=== PATIENT | female | born 1945 | race Caucasian/White ===

== ENCOUNTER 2019-05-01 13:13 | Outpatient (CLI) | payer MEDICARE, SELFPAY ==
[2019-05-01 13:30] LABS: Basophils Absolute Auto 0.05 K/mm3 (0.00-0.10); Basophils Percent Auto 1.2 % (0.0-1.0); Eosinophils Absolute Auto 0.15 K/mm3 (0.02-0.50); Eosinophils Percent Auto 3.6 % (1.0-6.0); Hematocrit 35.6 % (35.0-42.0); Hemoglobin 11.7 g/dL (11.7-13.8); Immature Granulocyte Absolute 0.01 K/mm3 (0.00-0.00); Immature Granulocyte Percent A 0.2 % (0.0-0.0); Lymphocytes Absolute Auto 1.31 K/mm3 (1.10-4.50); Lymphocytes Percent Auto 31.1 % (18.0-42.0); Mean Corpuscular HGB Conc 32.9 g/dL (32.0-36.0); Mean Corpuscular Hemoglobin 32.9 pg (27.0-31.0); Monocytes Absolute Auto 0.33 K/mm3 (0.10-0.90); Monocytes Percent Auto 7.8 % (2.0-11.0); Neutrophils Absolute Auto 2.4 K/mm3 (1.7-7.2); Neutrophils Percent Auto 56.1 % (50.0-70.0); Platelet Count Result 194 K/mm3 (150-420); Red Blood Count 3.56 M/mm3 (4.20-5.40); Red Cell Distribution Width 13.3 % (11.6-14.4); White Blood Count 4.2 K/mm3 (4.8-10.8)
[2019-05-01 14:29] LABS: Alanine Aminotransferase 24 U/L (14-59); Albumin Level 3.8 g/dL (3.4-5.0); Alkaline Phosphatase 77 U/L (46-116); Anion Gap 9.4 mmol/L (7-16); Aspartate Amino Transferase 22 U/L (15-37); Bilirubin,Total 0.3 mg/dL (0.00-1.00); Blood Urea Nitrogen 15 mg/dL (7-18); Calcium 8.2 mg/dL (8.5-10.1); Carbon Dioxide 31 mmol/L (21-32); Chloride 105 mmol/L (98-108); Estimated Glomerular Filt Rate > 60; Glucose 124 mg/dL (70-99); Osmolality Calculated 293 mOsm/kg (285-295); Potassium 4.4 mmol/L (3.5-5.1); Sodium 141 mmol/L (136-145); Total Protein 6.2 g/dL (6.4-8.2)
[2019-05-01 14:30] LABS: CRP < 0.2 mg/dL (0.0-0.9)
[2019-05-01 14:40] LABS: Erythrocyte Sedimentation Rate 9 mm/hr (0-20)
== END 2019-05-01 13:14 | disposition home or self-care (01) ==
LOC: CHSLAB 13:17
PROVIDERS: PCP Family Medicine
DX: Z79.899 Other long term (current) drug therapy (principal); M06.9 Rheumatoid arthritis, unspecified
CPT/HCPCS: 36415; 80053; 85025; 85652; 86140

== ENCOUNTER 2020-01-08 10:02 | Outpatient (CLI) | payer MEDICARE, SELFPAY ==
[2020-01-08 10:29] LABS: Basophils Absolute Auto 0.05 K/mm3 (0.00-0.10); Basophils Percent Auto 1.1 % (0.0-1.0); Eosinophils Absolute Auto 0.15 K/mm3 (0.02-0.50); Eosinophils Percent Auto 3.4 % (1.0-6.0); Hematocrit 36.9 % (35.0-42.0); Hemoglobin 12.3 g/dL (11.7-13.8); Immature Granulocyte Absolute 0.01 K/mm3 (0.00-0.00); Immature Granulocyte Percent A 0.2 % (0.0-0.0); Lymphocytes Absolute Auto 1.23 K/mm3 (1.10-4.50); Lymphocytes Percent Auto 27.5 % (18.0-42.0); Mean Corpuscular HGB Conc 33.3 g/dL (32.0-36.0); Mean Corpuscular Hemoglobin 32.7 pg (27.0-31.0); Mean Corpuscular Volume 98.1 fL (78.0-102.0); Mean Platelet Volume 9.3 fl (9.2-11.8); Monocytes Absolute Auto 0.32 K/mm3 (0.10-0.90); Monocytes Percent Auto 7.2 % (2.0-11.0); Neutrophils Absolute Auto 2.7 K/mm3 (1.7-7.2); Neutrophils Percent Auto 60.6 % (50.0-70.0); Platelet Count Result 214 K/mm3 (150-420); Red Blood Count 3.76 M/mm3 (4.20-5.40); White Blood Count 4.5 K/mm3 (4.8-10.8)
[2020-01-08 11:28] LABS: Alanine Aminotransferase 21 U/L (14-59); Albumin Level 3.9 g/dL (3.4-5.0); Alkaline Phosphatase 70 U/L (46-116); Anion Gap 7 mmol/L (8-16); Aspartate Amino Transferase 17 U/L (15-37); Bilirubin,Total 0.5 mg/dL (0.00-1.00); Blood Urea Nitrogen 12 mg/dL (7-18); Calcium 8.6 mg/dL (8.5-10.1); Carbon Dioxide 28 mmol/L (21-32); Chloride 105 mmol/L (98-108); Estimated Glomerular Filt Rate > 60; Glucose 80 mg/dL (70-99); Osmolality Calculated 288 mOsm/kg (285-295); Potassium 4.4 mmol/L (3.5-5.1); Sodium 140 mmol/L (136-145); Total Protein 6.6 g/dL (6.4-8.2)
[2020-01-08 11:29] LABS: CRP < 0.2 mg/dL (0.0-0.9)
[2020-01-08 11:36] LABS: Erythrocyte Sedimentation Rate 18 mm/hr (0-20)
== END 2020-01-08 10:03 | disposition home or self-care (01) ==
PROVIDERS: PCP Family Medicine
DX: M06.9 Rheumatoid arthritis, unspecified (principal); Z79.899 Other long term (current) drug therapy
CPT/HCPCS: 36415; 80053; 85025; 85652; 86140

== ENCOUNTER 2020-03-06 13:07 | Outpatient (CLI) | payer MEDICARE, SELFPAY ==
[2020-03-06 13:18] LABS: Hematocrit 39.8 % (35.0-42.0); Hemoglobin 13.1 g/dL (11.7-13.8); Mean Corpuscular HGB Conc 32.9 g/dL (32.0-36.0); Mean Corpuscular Hemoglobin 32.1 pg (27.0-31.0); Mean Corpuscular Volume 97.5 fL (78.0-102.0); Platelet Count Result 186 K/mm3 (150-420); Red Blood Count 4.08 M/mm3 (4.20-5.40); Red Cell Distribution Width 11.9 % (11.6-14.4)
[2020-03-06 14:09] LABS: Ferritin 77 ng/mL (8-252)
== END 2020-03-06 13:08 | disposition home or self-care (01) ==
LOC: CHSLAB 13:09
PROVIDERS: PCP Family Medicine; Visit Provider Family Medicine
DX: G25.81 Restless legs syndrome (principal); R71.8 Other abnormality of red blood cells
CPT/HCPCS: 36415; 82728; 85027

== ENCOUNTER 2020-04-08 11:24 | Outpatient (CLI) | payer MEDICARE, SELFPAY ==
[2020-04-08 11:34] LABS: Basophils Absolute Auto 0.05 K/mm3 (0.00-0.10); Basophils Percent Auto 1.2 % (0.0-1.0); Eosinophils Absolute Auto 0.21 K/mm3 (0.02-0.50); Eosinophils Percent Auto 5.2 % (1.0-6.0); Hematocrit 34.8 % (35.0-42.0); Hemoglobin 11.5 g/dL (11.7-13.8); Immature Granulocyte Absolute 0.01 K/mm3 (0.00-0.00); Immature Granulocyte Percent A 0.2 % (0.0-0.0); Lymphocytes Absolute Auto 1.27 K/mm3 (1.10-4.50); Lymphocytes Percent Auto 31.6 % (18.0-42.0); Mean Corpuscular Hemoglobin 31.8 pg (27.0-31.0); Mean Corpuscular Volume 96.1 fL (78.0-102.0); Mean Platelet Volume 8.4 fl (9.2-11.8); Monocytes Absolute Auto 0.37 K/mm3 (0.10-0.90); Monocytes Percent Auto 9.2 % (2.0-11.0); Neutrophils Absolute Auto 2.1 K/mm3 (1.7-7.2); Neutrophils Percent Auto 52.6 % (50.0-70.0); Platelet Count Result 218 K/mm3 (150-420); Red Blood Count 3.62 M/mm3 (4.20-5.40); Red Cell Distribution Width 12.5 % (11.6-14.4)
[2020-04-08 12:34] LABS: Alanine Aminotransferase 31 U/L (14-59); Albumin Level 3.8 g/dL (3.4-5.0); Alkaline Phosphatase 83 U/L (46-116); Anion Gap 7 mmol/L (8-16); Aspartate Amino Transferase 21 U/L (15-37); Bilirubin,Total 0.6 mg/dL (0.00-1.00); Blood Urea Nitrogen 10 mg/dL (7-18); CRP < 0.2 mg/dL (0.0-0.9); Calcium 8.4 mg/dL (8.5-10.1); Carbon Dioxide 28 mmol/L (21-32); Chloride 104 mmol/L (98-108); Estimated Glomerular Filt Rate > 60; Glucose 82 mg/dL (70-99); Osmolality Calculated 286 mOsm/kg (285-295); Potassium 4.7 mmol/L (3.5-5.1); Sodium 139 mmol/L (136-145)
== END 2020-04-08 11:25 | disposition home or self-care (01) ==
LOC: CHSLAB 11:27
PROVIDERS: PCP Family Medicine
DX: M06.9 Rheumatoid arthritis, unspecified (principal); Z79.899 Other long term (current) drug therapy
CPT/HCPCS: 36415; 80053; 85025; 86140

== ENCOUNTER → 2020-06-02 01:00 | Outpatient (CLI) | payer MEDICARE, OTHER, SELFPAY ==
[2020-06-02 20:47] LABS: SARS-CoV-2 RNA PCR Negative
== END ==
PROVIDERS: PCP Family Medicine; Visit Provider Orthopaedic Surgery
DX: Z01.812 Encounter for preprocedural laboratory examination (principal); Z20.822 Contact with and (suspected) exposure to COVID-19
CPT/HCPCS: C9803; U0003; U0005

== ENCOUNTER 2020-06-05 01:37 | Day surgery (SDC) | payer MEDICARE, OTHER, SELFPAY ==
[2020-05-28 13:51] VITALS: BMI 23.6
--- NOTE | 2020-06-04 12:30 | WPDANESEPPF ---
Anes - Initial Pre Proc Eval Procedure: Operation Date: 06/05/20 10:30 Proposed Procedures p Open Distal Clavicle Excision, Right Shoulder - Gabino Romero MD Date/Time: 06/04/20 12:30 Surgeon: Gabino Romero MD Pre Op Diagnosis: Primary OA, Right Shoulder Patient Data Age: 74 Gender: F Height: 1.65 m Weight: 64.54 kg Allergies Allergy/AdvReac Type Severity Reaction Status Date / Time No Known Allergies Allergy Verified 05/28/20 13:48 Home Medications Medication Instructions Recorded Confirmed Type folic acid 1 mg tablet 1 mg PO DAILY 03/18/19 05/28/20 History hydroxychloroquine 200 mg tablet 200 mg PO DAILY 03/18/19 05/28/20 History multivitamin 1 tablet PO DAILY 03/18/19 05/28/20 History tramadol 50 mg tablet 50 mg PO Q6H PRN 03/18/19 05/28/20 History trazodone 50 mg tablet 100 mg PO .Bedtime tablet 03/18/19 05/28/20 History methotrexate sodium 2.5 mg tablet 20 mg PO WEEKLY tablet 03/06/20 05/28/20 History ropinirole 0.5 mg tablet See Rx Instructions .ROUTE 05/28/20 05/28/20 Rx .COMPLEX #90 tablet Patient hx anesthesia problems: none Family hx anesthesia problems: none PMFSH Past Medical History Medical History (Updated 05/18/20 @ 14:22 by Gabino Romero MD) Palindromic rheumatism Peripheral neuropathy Restless leg syndrome Rheumatoid arthritis Skin lesion Surgical History Surgical History (Updated 05/18/20 @ 13:12 by Sirena Brandt MA) History of appendectomy History of carpal tunnel release of both wrists (~1999) History of hysterectomy History of repair of left rotator cuff (~1997) History of repair of right rotator cuff (~2015) History of surgery (~2018) Biceps tendon repair Family History Family History Father Diabetes mellitus Kidney disease Mother Wegeners granulomatosis Social History Social History (Updated 05/18/20 @ 13:13 by Sirena Brandt MA) Smoking status: Former smoker Tobacco type: cigarettes Additional smoking assessment comments: STATES 1PK EVERY 3 DAYS FOR 20YRS, QUIT 1994 Alcohol intake: never Substance use: never Substance use type: does not use Living arrangements: with family Additional living arrangements comments: LIVES WITH [facility] [phone] Gender identity (if verbalized by the patient): Female Spiritual care concerns: No Anes - Eval Final PreProcedure Day of Procedure 06/04/20 12:30 Patient weight: normal Heart: regular rate and rhythm Lungs: clear to auscultation and normal air movement Airway: Mallampati scale class II Neurological: alert and oriented Last oral intake: >/= 8 hours ASA classification: III Emergent: no Anesthetic plan: proceed Anesthesia type and monitoring: general ETT and standard monitoring Informed Consent: The patient's anesthetic plan and its attendant risks and benefits were discussed with the patient/family/POA. Questions were solicited and answers provided to the satisfaction of the patient/family/POA.
[2020-06-05] VITALS (10 sets, daily range): BP systolic 96–124; BP diastolic 42–53; PULSE 63–89; RESP 12–18; TEMP 36.4–36.6; O2SAT 94–100
--- NOTE | 2020-06-05 07:27 | WPDHPUPDATE1 ---
History and Physical Update Update Date/Time: 06/05/20 07:27 History and Physical has been reviewed, including an updated exam of the patient. There are NO changes in the patient's condition. Risks, benefits, and alternatives have been discussed and questions answered. Patient agrees to proceed with procedure.
[2020-06-05] MEDS: KETOROLAC 15 MG/ML VIAL (*BKC) IV PUSH (08:48)
[2020-06-05] MEDS: ACETAMINOPHEN 500 MG TABLET 1000 MG PO (08:48)
[2020-06-05] MEDS: LACTATED RINGERS 1,000 ML 30 ML IV CONT ×3 (08:49→14:00)
[2020-06-05] MEDS: ceFAZolin 2 GM/D5W 50 ML 2 GM/50 ML BAG IVPB (10:52)
[2020-06-05] MEDS: BUPIVACAINE/EPINEPHRINE 0.5% 10 ML VIAL 30 ML INFILTRATE (11:38)
--- NOTE | 2020-06-05 12:20 | PM.PROC ---
Procedure Note - Detailed Date of procedure: 06/05/20 Pre-op diagnosis: Primary OA, Right Shoulder A/C joint arthrosis, right shoulder. Post-op diagnosis: same Procedure performed: 1. Distal clavicle excision, open. Description of procedure: Several additional mm of bone was resected to relieve impingement at the distal clavicle. Anesthesia: GLMA Surgeon: Gabino Romero MD Estimated blood loss (mL): 10 Pathology: none sent Complications: No immediate complications Condition: stable Disposition: PACU Findings: Operative indication: The patient complained of persistent pain at the top of the shoulder. History of arthroscopic rotator cuff repair with acromioplasty and DCE; and second look arthroscopy with subpectoral biceps tenodesis; all done elsewhere. Operative findings: The shoulder demonstrated no abnormal findings on examination under anesthesia. Slight irregularity at the distal clavicle was observed. There was evidence of impingement of the acromion on the clavicle with cross arm adduction. Operative Details: A general anesthetic was administered. Local anesthetic was used; 0.5% Marcaine with epinephrine, 10mL. The shoulder was prepped and draped in usual sterile fashion. A longitudinal incision was created over the distal end of the clavicle. Dissection was brought down to the superior fascia and capsule of the joint. This was incised longitudinally along the length of the bone. Approximately 1 centimeter of distal clavicle was exposed. Hohmann retractors were placed for protection resection. The microsagittal saw was used to remove an additional 4 mm which brought the total resected length to approximately 1-1.5 cm. Meticulous hemostasis was maintained. The overlying periosteum and superior ligaments were closed with interrupted #1 Vicryl suture. The subcutaneous tissues were closed with 2-0 Vicryl, 3-0 Monocryl suture and 4-0 Monocryl suture. Steri-Strips were placed on the skin. Sterile dressing was applied with a sling. The patient was extubated and brought to the recovery room in stable condition. There were no complications.
[2020-06-05] MEDS: ONDANSETRON INJ 4 MG/2 ML VIAL IV PUSH (13:39)
== END 2020-06-05 15:15 | disposition home or self-care (01) ==
PROVIDERS: PCP Family Medicine; Visit Provider Orthopaedic Surgery
PROC: (CPT 23420; principal; 2020-06-05 10:30)
DX: M19.011 Primary osteoarthritis, right shoulder (principal); M75.41 Impingement syndrome of right shoulder; Z98.890 Other specified postprocedural states; M06.9 Rheumatoid arthritis, unspecified; G25.81 Restless legs syndrome; G62.9 Polyneuropathy, unspecified; Z87.891 Personal history of nicotine dependence
CPT/HCPCS: 23120; A4565; A9270; J0330; J0690; J1100; J1885; J2405; J2704; J2710; J3010; J7120

== ENCOUNTER 2020-06-16 13:31 | Outpatient (CLI) | payer MEDICARE, OTHER, SELFPAY ==
--- NOTE | ~2020-06-16 | XR_ITS ---
XR ribs LT 2V w CXR 2V DATE: 06/16/2020 13:51 INDICATION: Left-sided chest pain following twisting injury. Shortness of breath. TECHNIQUE: PA and lateral chest. 3 views of the left ribs. COMPARISON: None FINDINGS: Normal heart size. No hilar or mediastinal enlargement. No pulmonary infiltrate or consolidation, pleural effusion or pulmonary vascular congestion or pneumo thorax. Diffuse osteopenia. No left rib fracture or bone destruction is evident. IMPRESSION: Diffuse osteopenia No left rib fracture is noted No active cardiopulmonary disease Reviewed, dictated and finalized at location A.
== END 2020-06-16 13:32 | disposition home or self-care (01) ==
LOC: CHSIMG 13:34
PROVIDERS: PCP Family Medicine; Visit Provider Nurse Practitioner Family
DX: R10.9 Unspecified abdominal pain (principal)
CPT/HCPCS: 71046; 71100

== ENCOUNTER 2020-06-18 10:21 | Outpatient (CLI) | payer MEDICARE, OTHER, SELFPAY ==
--- NOTE | ~2020-06-18 | CT_ITS ---
EXAMINATION: CT chest abdomen wo con EXAM DATE: 06/18/2020 11:20 INDICATION: R10.9 - Unspecified abdominal pain upper left flank abd/ left lower lat chest pain x2wks. Symptoms 2 weeks. TECHNIQUE: Spiral CT of the chest and abdomen was performed without contrast. Axial, coronal and sa gittal images chest and abdomen were reviewed. Coronal maximum intensity pixel images of chest revie wed. The dose-length product (DLP) for this examination was 302.17 mGy-cm. The exposure was tailore d according to patient size (auto mA exposure control), and iterative reconstruction (ASIR) was used as additional dose reduction technique. There is no prior study for comparison. FINDINGS: CHEST: Small amount of biapical scarring. Some calcified left lung parenchymal granulomata. Mild emp hysema and hyperinflation. Mild mosaic attenuation probably air trapping. There are no pleural or pe ricardial effusions. Tracheobronchial tree is patent. There is no mediastinal, hilar or axillary lymphadenopathy. There is no pneumothorax. Heart normal in size. There is mild coronary arteria l calcification, arterial sclerosis. ABDOMEN: Splenic and liver granulomata. Pancreas and adrenal glands are unremarkable. Gallbladder is unremarkable. No biliary obstruction. Several punctate right calyceal stones. No hydronephrosis. There is no retroperitoneal lymphadenopathy. There is mild scattered arteriosclerotic disease. There is small sliding gastroesophageal hiatal hernia. There is moderate to large amount of colonic stool. No free intraperitoneal gas. There are no osteoblastic or osteolytic lesions identified. IMPRESSION: 1. Moderate to large amount of colonic stool. 2. Punctate right nephrolithiasis. 3. Mild emphysema, hyperinflation and air trapping. 4. Infectious residua. Reviewed, dictated and finalized at location A.
== END 2020-06-18 10:22 | disposition home or self-care (01) ==
LOC: CHSIMG 10:24
PROVIDERS: PCP Family Medicine; Visit Provider Nurse Practitioner Family
DX: R10.9 Unspecified abdominal pain (principal)
CPT/HCPCS: 71250; 74150

== ENCOUNTER 2021-08-19 13:30 | Outpatient (CLI) | payer MEDICARE, OTHER, SELFPAY ==
[2021-08-19 13:42] LABS: Basophils Absolute Auto 0.07 K/mm3 (0.00-0.10); Basophils Percent Auto 1.4 % (0.0-1.0); Eosinophils Absolute Auto 0.14 K/mm3 (0.02-0.50); Eosinophils Percent Auto 2.8 % (1.0-6.0); Hematocrit 37.6 % (35.0-42.0); Hemoglobin 12.4 g/dL (11.7-13.8); Immature Granulocyte Absolute 0.01 K/mm3 (0.00-0.00); Immature Granulocyte Percent A 0.2 % (0.0-0.0); Lymphocytes Absolute Auto 1.72 K/mm3 (1.10-4.50); Lymphocytes Percent Auto 33.9 % (18.0-42.0); Mean Corpuscular Hemoglobin 31.9 pg (27.0-31.0); Mean Corpuscular Volume 96.7 fL (78.0-102.0); Mean Platelet Volume 9.4 fl (9.2-11.8); Monocytes Absolute Auto 0.39 K/mm3 (0.10-0.90); Monocytes Percent Auto 7.7 % (2.0-11.0); Neutrophils Absolute Auto 2.7 K/mm3 (1.7-7.2); Platelet Count Result 221 K/mm3 (150-420); Red Blood Count 3.89 M/mm3 (4.20-5.40); Red Cell Distribution Width 12.9 % (11.6-14.4); White Blood Count 5.1 K/mm3 (4.8-10.8)
[2021-08-19 14:16] LABS: Alanine Aminotransferase 21 U/L (14-59); Albumin Level 3.9 g/dL (3.4-5.0); Alkaline Phosphatase 84 U/L (46-116); Anion Gap 9 mmol/L (8-16); Aspartate Amino Transferase 18 U/L (15-37); Bilirubin,Total 0.6 mg/dL (0.00-1.00); Blood Urea Nitrogen 13 mg/dL (7-18); Calcium 8.7 mg/dL (8.5-10.1); Carbon Dioxide 28 mmol/L (21-32); Chloride 105 mmol/L (98-108); Estimated Glomerular Filt Rate > 60; Glucose 93 mg/dL (70-99); Osmolality Calculated 294 mOsm/kg (285-295); Potassium 3.9 mmol/L (3.5-5.1); Sodium 142 mmol/L (136-145); Total Protein 7.1 g/dL (6.4-8.2)
[2021-08-19 15:15] LABS: CRP < 0.2 mg/dL (0.0-0.9)
[2021-08-19 16:08] LABS: Erythrocyte Sedimentation Rate 11 mm/hr (0-20)
== END 2021-08-19 13:31 | disposition home or self-care (01) ==
LOC: CHSLAB 13:34
DX: M06.9 Rheumatoid arthritis, unspecified (principal); Z79.899 Other long term (current) drug therapy
CPT/HCPCS: 36415; 80053; 85025; 85652; 86140

== ENCOUNTER 2022-01-17 00:57 | Emergency (ER) | payer MEDICARE, OTHER, SELFPAY ==
[2022-01-17] VITALS (16 sets, daily range): BP systolic 90–115; BP diastolic 39–65; PULSE 55–65; RESP 11–20; TEMP 36.6; O2SAT 94–100
--- NOTE | ~2022-01-17 | XR_ITS ---
EXAMINATION: XR foot LT min 3V DATE: 01/17/2022 01:37 INDICATION: Left foot injury. TECHNIQUE: 3 views of left foot were obtained. COMPARISON: None. FINDINGS: Bone alignment is normal. No fracture. There is mild osteoarthritis of first metatarsophala ngeal joint and some of the interphalangeal joints and midfoot joints. There is soft tissue swelling of the foot. IMPRESSION: 1. Mild polyarticular osteoarthritis. Reviewed, dictated and finalized at location A. [employer]TER
--- NOTE | 2022-01-17 01:00 | ED.SYNCOPE ---
HPI - Syncope General Chief Complaint: Extremity Injury, Lower Stated Complaint: foot pain Time Seen by Provider: 01/17/22 01:00 Source: patient, EMS and RN notes reviewed Mode of arrival: EMS Limitations: no limitations History of Present Illness HPI narrative: Patient at home and had taken her trazodone for sleep. Her was having some difficulty with urination and had called out to her to help him. She stood up out of bed turn to get her clothes the next thing she knew she was on the floor. She did not hit her head. When she tried to get up off the floor she noticed that her left foot had been injured. She is not sure how that happened. It is swollen and bruised. complaint: loss of consciousness Onset (ago): minute(s) (40) -: second(s) Prodromal symptoms: none Witnessed: No Context: getting out of bed Injuries sustained associated with event: LLE (foot) Current symptoms: back to baseline Treatments prior to arrival: none Related Data Home Medications Medication Instructions Recorded Confirmed folic acid 1 mg tablet 1 mg PO DAILY 03/18/19 01/17/22 hydroxychloroquine 200 mg tablet 200 mg PO DAILY 03/18/19 01/17/22 multivitamin 1 tablet PO DAILY 03/18/19 01/17/22 tramadol 50 mg tablet 50 mg PO Q6H PRN Pain 03/18/19 01/17/22 methotrexate sodium 2.5 mg tablet 20 mg PO WEEKLY 03/06/20 01/17/22 gabapentin 300 mg capsule 300 mg PO HS 01/17/22 01/17/22 pregabalin 75 mg capsule 150 mg PO BID 01/17/22 01/17/22 Allergies Allergy/AdvReac Type Severity Reaction Status Date / Time No Known Allergies Allergy Verified 07/21/20 06:58 Review of Systems Review of Systems: All systems reviewed & are unremarkable except as noted in HPI and below PMFSH Past Medical History Medical History Palindromic rheumatism Peripheral neuropathy Restless leg syndrome Rheumatoid arthritis Skin lesion Surgical History Surgical History History of appendectomy History of carpal tunnel release of both wrists (~1999) History of hysterectomy History of repair of left rotator cuff (~1997) History of repair of right rotator cuff (~2015) History of surgery (~2019) Biceps tendon repair Family History Family History Father Diabetes mellitus Kidney disease Mother Wegeners granulomatosis Social History Social History Smoking status: Former smoker Tobacco type: cigarettes Additional smoking assessment comments: STATES 1PK EVERY 3 DAYS FOR 20YRS, QUIT 1994 Alcohol intake: never Substance use: never Substance use type: does not use Additional living arrangements comments: LIVES WITH [facility] [phone] Gender identity (if verbalized by the patient): Female Spiritual care concerns: No Exam Const: General: healthy appearing, no acute distress and alert Nutritional Appearance: well nourished Orientation/consciousness: patient oriented x3 Limitations: no limitations HENMT: Head: normal to inspection Ears: external ears normal Face/Nose/Sinus: Normal external nose present Face and sinus: normal facial exam Mouth: Yes moist mucous membranes Eyes: Conjunctivae: conjunctivae normal Pupils: Equal, round and reactive pupils present EOM: EOMs intact bilaterally Neck: Neck: normal visual inspection Resp: Effort & Inspection: normal respiratory effort Auscultation: clear to auscultation bilaterally Cardio: Rate: regular rate Rhythm: regular rhythm GI: GI Palp: Yes Soft to palpation and No Tenderness to palpation present (GI) Auscultation: normal bowel sounds Back/Spine/Pelvis: Cervical Spine: cervical ROM normal Thoracic/Lumbar Spine: thoraco-lumbar ROM normal Skin: General skin exam: normal color Rashes: no rashes Neuro: General: patient oriented x3, moves all extre
--- NOTE | 2022-01-17 01:02 | ECG_ITS ---
Measurements Intervals [place] Rate: 55 P: 73 KS: 250 QRS: 40 QRSD: 95 T: 45 QT: 490 QTc: 469 Interpretive Statements SINUS BRADYCARDIA WITH FIRST DEGREE AV BLOCK OTHERWISE NORMAL ECG NO PREVIOUS ECG AVAILABLE FOR COMPARISON Electronically Signed On 01-17-2022 6:28:54 [employer] LINKER by Venkatesh Pathak M.D.
[2022-01-17] MEDS: KETOROLAC 30 MG/ML VIAL (*BKC) IV PUSH (01:14)
[2022-01-17 01:23] LABS: Basophils Absolute Auto 0.05 K/mm3 (0.00-0.10); Eosinophils Absolute Auto 0.27 K/mm3 (0.02-0.50); Eosinophils Percent Auto 5.5 % (1.0-6.0); Hematocrit 35.9 % (35.0-42.0); Immature Granulocyte Absolute 0.02 K/mm3 (0.00-0.00); Immature Granulocyte Percent A 0.4 % (0.0-0.0); Lymphocytes Absolute Auto 1.63 K/mm3 (1.10-4.50); Lymphocytes Percent Auto 33.3 % (18.0-42.0); Mean Corpuscular HGB Conc 33.4 g/dL (32.0-36.0); Mean Corpuscular Hemoglobin 32.3 pg (27.0-31.0); Mean Corpuscular Volume 96.8 fL (78.0-102.0); Mean Platelet Volume 9.2 fl (9.2-11.8); Monocytes Absolute Auto 0.31 K/mm3 (0.10-0.90); Monocytes Percent Auto 6.3 % (2.0-11.0); Neutrophils Absolute Auto 2.6 K/mm3 (1.7-7.2); Neutrophils Percent Auto 53.5 % (50.0-70.0); Platelet Count Result 157 K/mm3 (150-420); Red Blood Count 3.71 M/mm3 (4.20-5.40); Red Cell Distribution Width 13.2 % (11.6-14.4); White Blood Count 4.9 K/mm3 (4.8-10.8)
[2022-01-17 01:41] LABS: Alanine Aminotransferase 21 U/L (14-59); Albumin Level 3.4 g/dL (3.4-5.0); Alkaline Phosphatase 77 U/L (46-116); Anion Gap 6 mmol/L (8-16); Aspartate Amino Transferase 18 U/L (15-37); Bilirubin,Total 0.4 mg/dL (0.00-1.00); Blood Urea Nitrogen 17 mg/dL (7-18); Calcium 8.1 mg/dL (8.5-10.1); Carbon Dioxide 31 mmol/L (21-32); Chloride 107 mmol/L (98-108); Estimated CRCL calculation 49 ml/min; Estimated Glomerular Filt Rate > 60; Glucose 144 mg/dL (70-99); Magnesium 1.9 mg/dL (1.8-2.4); Osmolality Calculated 302 mOsm/kg (285-295); Potassium 3.7 mmol/L (3.5-5.1); Sodium 144 mmol/L (136-145); Total Protein 6.5 g/dL (6.4-8.2); Troponin I 24.6 ng/L (0.00-60.4)
--- NOTE | 2022-01-17 02:20 | PC.NURSE ---
Pt assisted to BSC c stand and pivot to urinate, back to bed c SBA and Lt foot elevated and ice reapplied. Pt reports less pain c ice and pain med given.
[2022-01-17 02:34] LABS: Appearance Urine Clear (Clear); Bilirubin Urine Negative (Negative); Blood Urine 1+ (Negative); Glucose Urine UA Negative (Negative); Ketones Urine Negative (Negative); Leukocyte Esterase Ur Trace LEU/UL (Negative); Nitrate Urine Negative (Negative); Protein Urine Negative (Negative); Specific Grav Ur 1.015 (1.010-1.020); Urobilinogen Urine 0.2 mg/dL (0.2-1.0)
[2022-01-17 02:40] LABS: Add Urine Microscopic? YES; Amorphous Sediment Urine Moderate; Color Urine Light Yellow (Yellow); RBC Urine 0-2 /hpf (0-2); WBC Urine 0-3 /hpf (0-3)
[2022-01-17 02:41] LABS: Mucus Urine Moderate /lpf
--- NOTE | 2022-01-17 03:05 | PC.NURSE ---
POC discussed c pt and family, will send xray to radiologist for reading. Awaiting results, pt in position of comfort c daughter at bedside.
== END 2022-01-17 04:15 | disposition home or self-care (01) ==
PROVIDERS: Emergency Provider Emergency Medicine; PCP Family Medicine
DX: R55 Syncope and collapse (principal); S93.602A Unspecified sprain of left foot, initial encounter; W19.XXXA Unspecified fall, initial encounter
CPT/HCPCS: 36415; 73630; 80053; 81001; 83735; 84484; 85025; 93005; 96374; 99284; J1885

== ENCOUNTER 2022-01-19 17:42 | Outpatient (NON) | payer MEDICARE, SELFPAY | END 2022-01-19 17:43 | disposition home or self-care (01) | LOC: CHSLAB 17:44 | PROVIDERS: Visit Provider Family Medicine | DX: C44.329 Squamous cell carcinoma of skin of other parts of face (principal) | CPT/HCPCS: 88305; 88342 ==

== ENCOUNTER 2022-01-25 09:58 | Outpatient (CLI) | payer MEDICARE, OTHER, SELFPAY ==
--- NOTE | 2022-02-04 16:49 | WPDHOLTEREM ---
Holter/Event Monitor Holter/Event Monitor Date of procedure: 01/25/22 Holter/Event Procedure: 48 Hr Holter Monitor Indications: Orthostatic hypotension Conclusion: 1. 48 hour holter monitor on 01/25/22. 2. Predominant rhythm is sinus rhythm. HR range 47-114 bpm; average 65 bpm. 3. There are 553 premature supraventricular complexes and 40 supraventricular couplets. There are 10 episodes of atrial tachycardia, fastest at 145 bpm and longest lasting 8 beats. 4. No premature ventricular complexes. No ventricular tachycardia. 5. No sinoatrial or atrioventricular blocks. No significant pauses greater than 2 seconds. 6. No symptoms available for correlation.
== END 2022-01-25 09:59 | disposition home or self-care (01) ==
LOC: CHSLAB 10:01
PROVIDERS: PCP Family Medicine; Visit Provider Family Medicine
DX: I95.1 Orthostatic hypotension (principal)
CPT/HCPCS: 93225; 93226

== ENCOUNTER 2022-02-11 12:14 | Outpatient (CLI) | payer MEDICARE, OTHER, SELFPAY ==
--- NOTE | 2022-02-11 12:19 | ECHO_ITS ---
Patient Info Name: Nicolette Monk Age: 76 years : 1945 Gender: Female Ht: 65 in Wt: 145 lbs BSA: 1.75 m2 HR: 58 bpm BP: 105 / 48 mmHg Heart Rhythm: Sinus Rhythm Technical Quality: Fair Exam Date: 02/11/2022 1:31 PM Exam Location: [facility] Patient Status: Outpatient Admit Date: 02/11/2022 Staff Ordering Physician: Silviano Stone DO Design Agent: Daniella Caro RDCS Attending Provider: Silviano Stone DO Referring Physician: Chase TAFOYA; Exam Type: CA echo doppler color flow Study Info Indications - Orthostatic hypotension Complete two-dimensional, color flow and Doppler transthoracic echocardiogram is performed. Summary 1. Complete two-dimensional, color flow and Doppler transthoracic echocardiogram is performed. 2. Left ventricular chamber dimension is normal. 3. Left ventricular systolic function is normal, estimated at 60-65%. 4. The left ventricular diastolic function is normal. 5. E/e' 8 is minimally elevated. 6. Left atrial chamber dimension is moderately enlarged. 7. Right atrial chamber dimension is mildly enlarged. 8. There is trace aortic valve regurgitation. 9. There is mild mitral valve regurgitation. 10. There is trace tricuspid valve regurgitation. 11. No pulmonary hypertension, estimated pulmonary arterial systolic pressure is 23 mmHg. 12. There is trace pulmonic regurgitation. Left Ventricle E/e' 8 is minimally elevated. Left ventricular chamber dimension is normal. Left ventricular systolic function is normal, estimated at 60-65%. The left ventricular diastolic function is normal. Right Ventricle Right ventricular systolic function is normal and with normal TAPSE 2.1 cm. Right ventricular chamber dimension is normal. Left Atria Left atrial chamber dimension is moderately enlarged. Right Atria Right atrial chamber dimension is mildly enlarged. Aortic Valve The aortic valve is trileaflet. There is no aortic valve stenosis. There is trace aortic valve regurgitation. Pulmonic Valve There is trace pulmonic regurgitation. Mitral Valve There is no mitral valve stenosis. There is mild mitral valve regurgitation. Tricuspid Valve There is trace tricuspid valve regurgitation. No pulmonary hypertension, estimated pulmonary arterial systolic pressure is 23 mmHg. Pericardium/Pleural There is no pericardial effusion. Inferior Vena Cava Normal inferior vena cava with >50% collapse upon inspiration consistent with normal right atrial pressure, 5 mmHg. Aorta The aortic root size at the sinus of Valsalva is normal. Left Ventricular Outflow Tract Name Value Normal LVOT 2D LVOT Diameter 2.0 cm LVOT Doppler LVOT Peak Velocity 131 cm/s LVOT Peak Gradient 7 mmHg LVOT Mean Gradient 3 mmHg LVOT VTI 28 cm LVOT VTI/AV VTI Ratio 0.8 LVOT Stroke Volume 85 ml Pulmonic Valve Name
== END 2022-02-11 12:15 | disposition home or self-care (01) ==
LOC: CHSIMG 12:16
PROVIDERS: PCP Family Medicine; Visit Provider Family Medicine
DX: I95.1 Orthostatic hypotension (principal); R93.1 Abnormal findings on diagnostic imaging of heart and coronary circulation; I34.0 Nonrheumatic mitral (valve) insufficiency
CPT/HCPCS: 93306

== ENCOUNTER 2022-02-22 09:43 | Outpatient (CLI) | payer MEDICARE, OTHER, SELFPAY ==
[2022-02-22 10:26] LABS: Basophils Absolute Auto 0.03 K/mm3 (0.00-0.10); Basophils Percent Auto 0.7 % (0.0-1.0); Eosinophils Absolute Auto 0.19 K/mm3 (0.02-0.50); Eosinophils Percent Auto 4.3 % (1.0-6.0); Hematocrit 38.7 % (35.0-42.0); Hemoglobin 12.6 g/dL (11.7-13.8); Immature Granulocyte Absolute 0.02 K/mm3 (0.00-0.00); Immature Granulocyte Percent A 0.4 % (0.0-0.0); Lymphocytes Absolute Auto 1.13 K/mm3 (1.10-4.50); Lymphocytes Percent Auto 25.3 % (18.0-42.0); Mean Corpuscular HGB Conc 32.6 g/dL (32.0-36.0); Mean Corpuscular Hemoglobin 31.8 pg (27.0-31.0); Mean Corpuscular Volume 97.7 fL (78.0-102.0); Mean Platelet Volume 9.2 fl (9.2-11.8); Monocytes Absolute Auto 0.38 K/mm3 (0.10-0.90); Monocytes Percent Auto 8.5 % (2.0-11.0); Neutrophils Absolute Auto 2.7 K/mm3 (1.7-7.2); Neutrophils Percent Auto 60.8 % (50.0-70.0); Platelet Count Result 190 K/mm3 (150-420); Red Blood Count 3.96 M/mm3 (4.20-5.40); Red Cell Distribution Width 13.4 % (11.6-14.4); White Blood Count 4.5 K/mm3 (4.8-10.8)
[2022-02-22 11:01] LABS: Alanine Aminotransferase 20 U/L (14-59); Aspartate Amino Transferase 17 U/L (15-37); Estimated Glomerular Filt Rate > 60
[2022-02-22 11:05] LABS: CRP < 0.5 mg/dL (0.0-0.9)
[2022-02-22 11:36] LABS: Erythrocyte Sedimentation Rate 11 mm/hr (0-20)
== END 2022-02-22 09:44 | disposition home or self-care (01) ==
LOC: CHSLAB 09:46
PROVIDERS: PCP Family Medicine
DX: M06.9 Rheumatoid arthritis, unspecified (principal)
CPT/HCPCS: 36415; 82565; 84450; 84460; 85025; 85652; 86140

== ENCOUNTER 2022-03-29 09:02 | Outpatient (CLI) | payer MEDICARE, SELFPAY ==
[2022-03-29 10:02] LABS: Cholesterol 121 mg/dL (0-200); HDL Direct 60 mg/dL (40-60); LDL Cholesterol Calculated 54 mg/dL (<130); Magnesium 1.7 mg/dL (1.8-2.4); Triglycerides 36 mg/dL (0-150)
[2022-03-29 10:06] LABS: Thyroid Stimulating Hormone Reflex 1.12 u/IU/mL (0.36-3.74)
== END 2022-03-29 09:03 | disposition home or self-care (01) ==
LOC: CHSLAB 09:04
PROVIDERS: PCP Family Medicine; Visit Provider Internal Medicine Cardiovascular Disease
DX: I10 Essential (primary) hypertension (principal); I47.1 Supraventricular tachycardia
CPT/HCPCS: 36415; 80061; 83735; 84443

== ENCOUNTER → 2022-04-22 19:49 | Outpatient (CLI) | payer MEDICARE, OTHER, SELFPAY ==
--- NOTE | 2022-05-05 15:41 | WPDSLEEPSTUD ---
Sleep Study Date of Study: 04/22/22 Ordering Provider: Micheal William DO Interpreting Physician: Barbara See MD Sleep Study Type: Polysomnogram Height: 1.65 m Weight: 66.224 kg Body Mass Index: 24.3 Neck Circumference (inches): 13 [place]: 4 Reason for Sleep Study Hypersomnolence Sleep History Nicolette Monk is a 76-year-old woman with poor quality sleep. She sees Dr William for cardiovascular issues; has a history of paroxysmal atrial tachycardia, former smoker. She has a history of passing out twice, once on 01/16/22 when she got up in middle of night and walking in her room with her needing to go to ER, and first one was 10 years ago after having abdominal pain. She admits to snoring, waking up and daytime sleepiness. Dr. William's note indicates alex the patient is interested in an oral appliance. She rarely awakens from sleep feeling short of breath. She does not awaken at night with heartburn, belching or coughing. She occasionally snores and occasionally it is loud enough that other people complain about it. She does not have trouble sleeping with a cold. she rarely wakes up gasping for breath at night. She does not have excessive sweating at night or notice her heart pounding or beating irregularly at night. She does not fall asleep during the day, does not fall asleep involuntarily or while driving. There was no loss of muscle tone with strong emotion. There is no daytime dysfunction due to excessive sleepiness. There is no feeling of paralysis on waking or falling asleep and no vivid dreamlike scenes on waking or falling asleep. She is not afraid to go to sleep. She does not have nightmares. She frequently remembers her dreams. She constantly has racing thoughts. She rarely feels sad or depressed. She constantly has anxiety. She frequently has muscular tension. She occasionally notices parts of her body jerking. She occasionally kicks at night. She frequently has crawling and aching feelings in her legs and leg pain during the night. She does not have morning jaw pain. She frequently grinds her teeth during sleep. She is not bothered by pain during the day. She is not awakened by pain at night. She rarely wakes up feeling stiff in the morning. She does not wake up with sore achy muscles or pain in the neck and spine. Normal bedtime is 10:30 p.m. with about 5 minutes to fall asleep. She typically wakes 2-3 times at night to go to the bathroom. She is able to return to sleep and several minutes. Normal wake time is between 6 and 7:00 a.m.. On weekends she may stay awake until 11:00 p.m., wakes between 7 and 8:00 a.m.. She does not take naps in the afternoon or evening. Habits: Former smoker. No caffeine, alcohol or recreational drugs. [facility] Past Medical History Medical History (Updated 05/05/22 @ 18:41 by Barbara See MD) Palindromic rheumatism Peripheral neuropathy Restless leg syndrome Rheumatoid arthritis Skin lesion Surgical History Surgical History History of appendectomy History of carpal tunnel release of both wrists (~1999) History of hysterectomy History of repair of left rotator cuff (~1997) History of repair of right rotator cuff (~2015) History of surgery (~2018) Biceps tendon repair Family History Family History Father Diabetes mellitus Kidney disease Mother Wegeners granulomatosis Social History Social History Smoking status: Former smoker Tobacco type: cigarettes Additional smoking assessment comments: STATES 1PK EVERY 3 DAYS FOR 20YRS, QUIT 1994 Alcohol intake: never Substance use: never Substance use type: does not use Lack of Transportation: No Lack of Food: Never True Current Housing: I Have Housing Concerned About Future Housing: No Difficu
[2022-05-05 17:58] VITALS: BMI 24.3
== END ==
PROVIDERS: PCP Family Medicine; Visit Provider Internal Medicine Cardiovascular Disease
DX: G47.33 Obstructive sleep apnea (adult) (pediatric) (principal); G25.81 Restless legs syndrome; G47.10 Hypersomnia, unspecified; I47.1 Supraventricular tachycardia
CPT/HCPCS: 95810

== ENCOUNTER 2022-07-11 08:21 | Outpatient (CLI) | payer MEDICARE, OTHER, SELFPAY ==
--- NOTE | ~2022-07-11 | XR_ITS ---
XR foot LT min 3V DATE: 07/11/2022 08:41 INDICATION: Left foot pain TECHNIQUE: Standing 4 view examination COMPARISON: 01/17/2022 left foot FINDINGS: There is osteopenia. Slight plantar calcaneal enthesopathy. Mild osteoarthritis at the first metatarsophalangeal joint primarily. There is a concave depression with sclerotic margin at the medial base of the proximal phalanx of thi rd digit and small cortical defect in the apposing lateral aspect of the base of the proximal phalanx of the second digit. MR imaging may be helpful for further assessment. IMPRESSION: New apparent pressure erosion at the medial base of the proximal phalanx of the third dig it and apposing small cortical defect of the lateral base of the proximal phalanx of the second digit ; consider MR imaging for further evaluation Osteopenia Mild osteoarthritis, primarily at the first metatarsophalangeal joint Slight plantar calcaneal enthesopathy Reviewed, dictated and finalized at location A. IMPRESSION: New apparent pressure erosion at the medial base of the proximal ph alanx of the third digit and apposing small cortical defect of the lateral base of the proximal phalanx of the second digit; consider MR imaging for further e valuation Osteopenia Mild osteoarthritis, primarily at the first metatarsophalangeal joint Slight plantar calcaneal enthesopathy
== END 2022-07-11 08:22 | disposition home or self-care (01) ==
LOC: CHSIMG 08:24
PROVIDERS: PCP Family Medicine; Visit Provider Orthopaedic Surgery
DX: M79.672 Pain in left foot (principal); M85.88 Other specified disorders of bone density and structure, other site; M19.072 Primary osteoarthritis, left ankle and foot; M77.32 Calcaneal spur, left foot
CPT/HCPCS: 73630

== ENCOUNTER 2022-11-22 10:06 | Outpatient (CLI) | payer MEDICARE, OTHER, SELFPAY ==
--- NOTE | ~2022-11-22 | XR_ITS ---
Clinical Indication: Chronic cough PA and lateral views of the chest: Comparison: 06/16/2020 Findings: The lungs are clear, without evidence of focal consolidation or pleural effusion. Possible COPD. Cardiomediastinal silhouette is within normal limits. Bones and soft tissues are unremarkable. Impression: Clear lungs. Possible COPD. Reviewed, dictated and finalized at location . Impression: Clear lungs. Possible COPD.
[2022-11-22 10:25] LABS: Basophils Absolute Auto 0.05 K/mm3 (0.00-0.10); Basophils Percent Auto 0.7 % (0.0-1.0); Eosinophils Absolute Auto 0.16 K/mm3 (0.02-0.50); Eosinophils Percent Auto 2.1 % (1.0-6.0); Hematocrit 38.6 % (35.0-42.0); Hemoglobin 12.6 g/dL (11.7-13.8); Immature Granulocyte Absolute 0.02 K/mm3 (0.00-0.00); Immature Granulocyte Percent A 0.3 % (0.0-0.0); Lymphocytes Absolute Auto 1.52 K/mm3 (1.10-4.50); Mean Corpuscular HGB Conc 32.6 g/dL (32.0-36.0); Mean Corpuscular Hemoglobin 31.8 pg (27.0-31.0); Mean Corpuscular Volume 97.5 fL (78.0-102.0); Mean Platelet Volume 8.9 fl (9.2-11.8); Monocytes Absolute Auto 0.57 K/mm3 (0.10-0.90); Monocytes Percent Auto 7.5 % (2.0-11.0); Neutrophils Absolute Auto 5.3 K/mm3 (1.7-7.2); Neutrophils Percent Auto 69.4 % (50.0-70.0); Platelet Count Result 220 K/mm3 (150-420); Red Blood Count 3.96 M/mm3 (4.20-5.40); Red Cell Distribution Width 12.9 % (11.6-14.4); White Blood Count 7.6 K/mm3 (4.8-10.8)
[2022-11-22 10:57] LABS: Alanine Aminotransferase 23 U/L (14-59); Albumin Level 3.8 g/dL (3.4-5.0); Alkaline Phosphatase 85 U/L (46-116); Anion Gap 10 mmol/L (8-16); Aspartate Amino Transferase 17 U/L (15-37); Bilirubin,Total 0.6 mg/dL (0.00-1.00); Blood Urea Nitrogen 13 mg/dL (7-18); Calcium 8.8 mg/dL (8.5-10.1); Carbon Dioxide 26 mmol/L (21-32); Chloride 106 mmol/L (98-108); Estimated Glomerular Filt Rate > 60; Glucose 91 mg/dL (70-99); Osmolality Calculated 294 mOsm/kg (285-295); Potassium 4.1 mmol/L (3.5-5.1); Sodium 142 mmol/L (136-145); Total Protein 6.5 g/dL (6.4-8.2)
[2022-11-22 10:58] LABS: RFT Charge Test YES; Rheumatoid Factor Screen Positive (Negative)
[2022-11-22 10:59] LABS: CRP < 0.5 mg/dL (0.0-0.9)
[2022-11-22 11:24] LABS: Erythrocyte Sedimentation Rate 14 mm/hr (0-20)
[2022-11-24 19:50] LABS: ANA Cascade Screen Negative (Negative)
== END 2022-11-22 10:07 | disposition home or self-care (01) ==
LOC: CHSLAB 10:08
PROVIDERS: PCP Family Medicine; Visit Provider Family Medicine
DX: G62.89 Other specified polyneuropathies (principal); R13.10 Dysphagia, unspecified; R05.3 Chronic cough
CPT/HCPCS: 36415; 71046; 80053; 85025; 85652; 86038; 86140; 86430; 86431

== ENCOUNTER 2022-11-30 06:25 | Day surgery (SDC) | payer MEDICARE, OTHER, SELFPAY ==
[2022-11-24 09:50] VITALS: BMI 22.8
[2022-11-24 11:57] VITALS: BMI 23.3
[2022-11-30 07:46] VITALS: BP 97/68; PULSE 55; RESP 16; TEMP 36.8; O2SAT 100; BMI 23.7
[2022-11-30] MEDS: LACTATED RINGERS 1,000 ML 150 ML IV CONT (08:03)
--- NOTE | 2022-11-30 08:46 | WPDANESEPPF ---
Anes - Initial Pre Proc Eval Procedure: Operation Date: 11/30/22 09:00 Proposed Procedures p Esophagogastroduodenoscopy - Luis Dunaway DO Date/Time: 11/30/22 08:46 Surgeon: Luis Dunaway DO Pre Op Diagnosis: Dysphagia Patient Data Age: 77 Gender: F Height: 1.65 m Weight: 64.7 kg Last Vital Signs Temp 36.8 C 11/30/22 07:46 Pulse 55 L 11/30/22 07:46 Resp 16 11/30/22 07:46 BP 97/68 L 11/30/22 07:46 Pulse Ox 100 11/30/22 07:46 O2 Del Method Room Air 11/30/22 07:46 Allergies Allergy/AdvReac Type Severity Reaction Status Date / Time No Known Allergies Allergy Verified 11/30/22 07:39 Home Medications Medication Instructions Recorded Confirmed Type folic acid 1 mg tablet 1 mg PO DAILY 03/18/19 11/30/22 History hydroxychloroquine 200 mg tablet 200 mg PO DAILY 03/18/19 11/30/22 History multivitamin 1 tablet PO DAILY 03/18/19 11/30/22 History tramadol 50 mg tablet 50 mg PO Q6H PRN Pain 03/18/19 11/30/22 History methotrexate sodium 2.5 mg tablet 20 mg PO WEEKLY 03/06/20 11/30/22 History ropinirole 0.5 mg tablet See Rx Instructions .Route 03/15/22 11/30/22 Rx .COMPLEX #90 tabs trazodone 100 mg tablet See Rx Instructions .Route 03/15/22 11/30/22 Rx .COMPLEX #180 tabs magnesium oxide 400 mg (241.3 mg 400 mg PO DAILY #90 tabs 06/28/22 11/30/22 Rx magnesium) tablet (MagOx) montelukast 10 mg tablet 10 mg PO DAILY #90 tabs 11/22/22 11/30/22 Rx prednisone 50 mg tablet 50 mg PO PRN PRN palindromic 11/24/22 11/30/22 History arthritis flare-up Patient hx anesthesia problems: none Family hx anesthesia problems: none Results Review: All pre-operative results and documents have been reviewed as part of the pre-operative evaluation. [facility] Past Medical History Medical History Arthritis of foot, left, degenerative Palindromic rheumatism Peripheral neuropathy Restless leg syndrome Rheumatoid arthritis Skin lesion Surgical History Surgical History History of appendectomy History of carpal tunnel release of both wrists (~1999) History of hysterectomy History of repair of left rotator cuff (~1997) History of repair of right rotator cuff (~2015) History of surgery (~2018) Biceps tendon repair Family History Family History Father Diabetes mellitus Kidney disease Mother Wegeners granulomatosis Social History Social History Smoking status: Former smoker Tobacco type: cigarettes Smoking end date: 02/06/94 Additional smoking assessment comments: STATES 1PK EVERY 3 DAYS FOR 20YRS, QUIT 1994 Alcohol intake: current Substance use: never Substance use type: does not use Lack of Transportation: No Lack of Food: Never True Current Housing: I Have Housing Concerned About Future Housing: No Difficulty Paying Gas/Electric Bills: No Difficulty Paying for Meds: No Currently Unemployed: No Education: High School Diploma/GED Living arrangements: alone Additional living arrangements comments: LIVES WITH SPOUSE CHARLES [phone] Occupation/Education: retired Gender identity (if verbalized by the patient): Female Spiritual care concerns: No Anes - Eval Final PreProcedure Day of Procedure 11/30/22 08:46 Patient weight: normal Heart: regular rate and rhythm Lungs: clear to auscultation Airway: Mallampati scale class II Neurological: alert and oriented Last oral intake: >/= 8 hours ASA classification: III Emergent: no Anesthetic plan: proceed Anesthesia type and monitoring: general GIVS and standard monitoring Results Review: All pre-operative results and documents have been reviewed as part of the pre-operative evaluation. Informed Consent: The patient's anesthetic plan and its attendant ris
--- NOTE | 2022-11-30 09:22 | PM.IMHP ---
H&P: HPI History of Present Illness Date/Time: 11/30/22 09:22 Chief Complaint: dysphagia Narrative: this is a 77 yo woman who presents with dysphagia with solid foods. She denies dysphagia with liquids. She occasionally has to regurgitate her food. She denies acid reflux symptoms. She has never had an EGD before. Review of Systems Review of Systems: All systems reviewed & are unremarkable except as noted in HPI and below Constitutional: Constitutional: Denies chills, Denies fever(s), Denies headache(s) and Denies weight loss Eyes: Eyes: Denies change in vision ENT: Denies dizziness, Denies headache(s), Denies neck mass and Denies throat swelling Cardiovascular: Cardiovascular: Denies chest pain, Denies lightheadedness and Denies dyspnea Respiratory: Respiratory: Denies cough, Denies dyspnea and Denies wheezing Gastrointestinal: Gastrointestinal: Denies abdominal pain, Denies change in bowel habits, Denies nausea and Denies vomiting Genitourinary: Genitourinary: Denies hematuria and Denies dysuria Musculoskeletal: Musculoskeletal: Reports as per HPI Integumentary/Breasts: Skin/Breast: Reports as per HPI Neurologic: Denies dizziness and Denies headache(s) Allergic/Immunologic: Allergic/Immunologic: Denies throat swelling and Denies wheezing [facility] Past Medical History Medical History Arthritis of foot, left, degenerative Palindromic rheumatism Peripheral neuropathy Restless leg syndrome Rheumatoid arthritis Skin lesion Surgical History Surgical History History of appendectomy History of carpal tunnel release of both wrists (~1999) History of hysterectomy History of repair of left rotator cuff (~1997) History of repair of right rotator cuff (~2015) History of surgery (~2018) Biceps tendon repair Family History Family History Father Diabetes mellitus Kidney disease Mother Wegeners granulomatosis Social History Social History Smoking status: Former smoker Tobacco type: cigarettes Smoking end date: 02/06/94 Additional smoking assessment comments: STATES 1PK EVERY 3 DAYS FOR 20YRS, QUIT 1994 Alcohol intake: current Substance use: never Substance use type: does not use Lack of Transportation: No Lack of Food: Never True Current Housing: I Have Housing Concerned About Future Housing: No Difficulty Paying Gas/Electric Bills: No Difficulty Paying for Meds: No Currently Unemployed: No Education: High School Diploma/GED Living arrangements: alone Additional living arrangements comments: LIVES WITH SPOUSE CHARLES [phone] Occupation/Education: retired Gender identity (if verbalized by the patient): Female Spiritual care concerns: No Meds Home Medications and Allergies Home Medications Medication Instructions Recorded Confirmed Type folic acid 1 mg tablet 1 mg PO DAILY 03/18/19 11/30/22 History hydroxychloroquine 200 mg tablet 200 mg PO DAILY 03/18/19 11/30/22 History multivitamin 1 tablet PO DAILY 03/18/19 11/30/22 History tramadol 50 mg tablet 50 mg PO Q6H PRN Pain 03/18/19 11/30/22 History methotrexate sodium 2.5 mg tablet 20 mg PO WEEKLY 03/06/20 11/30/22 History ropinirole 0.5 mg tablet See Rx Instructions .Route 03/15/22 11/30/22 Rx .COMPLEX #90 tabs trazodone 100 mg tablet See Rx Instructions .Route 03/15/22 11/30/22 Rx .COMPLEX #180 tabs magnesium oxide 400 mg (241.3 mg 400 mg PO DAILY #90 tabs 06/28/22 11/30/22 Rx magnesium) tablet (MagOx) montelukast 10 mg tablet 10 mg PO DAILY #90 tabs 11/22/22 11/30/22 Rx prednisone 50 mg tablet 50 mg PO PRN PRN palindromic 11/24/22 11/30/22 History arthritis flare-up Allergies Allergy/AdvReac Type Severity Reaction Status Date / Time No Known Allergies All
[2022-11-30 09:46] VITALS: BP 85/59; PULSE 58; RESP 18; O2SAT 97
--- NOTE | 2022-11-30 09:53 | WPDANESPN ---
Anes - Prog Note Post-Op Date/Time: 11/30/22 09:53 Cardiovascular status: normal Respiratory status: normal Airway patency: baseline Mental status: baseline Post-Op hydration status: normal Vital Signs: Last Vital Signs Temp 36.8 C 11/30/22 07:46 Pulse 58 L 11/30/22 09:46 Resp 18 11/30/22 09:46 BP 85/59 L 11/30/22 09:46 Pulse Ox 97 11/30/22 09:46 O2 Del Method Room Air 11/30/22 09:46 Pain Score (VAS): 0/10 I/O: Intake & Output 11/29/22 11/30/22 11/30/22 23:59 07:59 15:59 Intake Total 100 Balance 100 Patient Feedback: Patient satisfied with anesthetic care.
[2022-11-30 09:56] VITALS: BP 91/54; PULSE 60; RESP 20; O2SAT 98
[2022-11-30 10:06] VITALS: BP 107/57; PULSE 62; RESP 20; O2SAT 98
== END 2022-11-30 10:17 | disposition home or self-care (01) ==
PROVIDERS: PCP Family Medicine; Visit Provider Surgery
PROC: 0DJ08ZZ Inspection of Upper Intestinal Tract, Via Natural or Artificial Opening Endoscopic (ICD-10-PCS; CPT 43235; principal; 2022-11-30 09:00)
DX: R13.19 Other dysphagia (principal); K22.2 Esophageal obstruction; K20.90 Esophagitis, unspecified without bleeding; K25.3 Acute gastric ulcer without hemorrhage or perforation; K44.9 Diaphragmatic hernia without obstruction or gangrene
CPT/HCPCS: 43249; 43239

== ENCOUNTER 2022-11-30 07:28 | Outpatient (NON) | payer MEDICARE, OTHER, SELFPAY | END 2022-11-30 07:29 | disposition home or self-care (01) | PROVIDERS: PCP Family Medicine; Visit Provider Surgery | DX: R13.10 Dysphagia, unspecified (principal) | CPT/HCPCS: 88305; 88342 ==

== ENCOUNTER 2022-12-06 13:27 | Outpatient (CLI) | payer MEDICARE, OTHER, SELFPAY ==
--- NOTE | ~2022-12-06 | MM_ITS ---
EXAMINATION: MM screening stevie BI w maude HISTORY: Screening mammogram TECHNIQUE: Craniocaudal and mediolateral oblique 3-D tomosynthesis images were obtained and synthetic 2-D images were generated. CAD analysis was submitted and interpreted. COMPARISON: No prior mammogram is available for comparison at this institution. BREAST PARENCHYMAL COMPOSITION: There are scattered areas of fibroglandular density. FINDINGS: RIGHT BREAST: There are asymmetries in the posterior third of the outer breast 9 cm and 12 cm from th e nipple on the craniocaudal view. LEFT BREAST: An asymmetry is present in the posterior third upper breast 10 cm from the nipple on the mediolateral oblique view.. IMPRESSION: 1. Bilateral breast asymmetries which may represent the patient's baseline however no comparison is c urrently available. 2. Comparison with prior mammograms is necessary. BI-RADS Category 0: Incomplete: Needs comparison with prior mammograms. Reviewed, dictated and finalized at location A. IMPRESSION: 1. Bilateral breast asymmetries which may represent the patient's baseline rico gil no comparison is currently available. 2. Comparison with prior mammograms is necessary. BI-RADS Category 0: Incomplete: Needs comparison with prior mammograms.
--- NOTE | 2022-12-09 10:13 | WPDPFTINT ---
PFT Procedure Performed PFT Procedure Performed Spirometry with Pre/Post Bronchodilator Plethysmography (Lung Vol) Diffusing Cap (DLCO) Flow Vol Loop PFT Interpretation DOS: 12/06/2022 REQUESTING: Dr. Silviano Stone REASON FOR TESTING: chronic cough PULMONARY FUNCTION TESTS Results are reliable and reproducible. Spirometry: pre bronchodilator FEV1 is 1.22 L, 58%, moderately reduced. Pre bronchodilator FVC is 2.08 L, 78%, mildly reduced. The FEV1/FVC ratio is 59%, reduced, consistent with airflow obstruction. After bronchodilator there is 8% increase in the FEV1, 1.32 L, and there is a 1% increase in the FVC, 2.10 L, negligible changes. This is not statistically significant. Lung volumes: The total lung capacity is 4.57 L, 92% predicted, normal. Residual volume is 2.48 L, 121%, borderline increased. RV/ TLC is 54%, increased, consistent with air trapping. Airway resistance 3.67 L, 286% predicted, increased. Diffusion: DLCO is 16.4, 91% predicted, normal. DLCO/VA is 5.61, 161% predicted, elevated. The alveolar volume is 2.92 L. Flow volume loop: There is coving of the expiratory limb consistent with obstruction. IMPRESSION: This pulmonary function study shows a moderate obstructive ventilatory impairment without response to bronchodilator, air trapping as evident by the increased residual volume, normal diffusion. This pattern can be seen in emphysema. The FEV1 can decrease before the DLCO decreases. Lack of response to bronchodilator should not preclude use if clinically indicated. Clinical correlation is recommended. There are no prior studies in our system for comparison. Barbara See MD
== END 2022-12-06 13:28 | disposition home or self-care (01) ==
LOC: CHSIMG 13:28
PROVIDERS: PCP Family Medicine; Visit Provider Family Medicine
DX: Z12.31 Encounter for screening mammogram for malignant neoplasm of breast (principal); R05.3 Chronic cough; R94.2 Abnormal results of pulmonary function studies; R92.8 Other abnormal and inconclusive findings on diagnostic imaging of breast
CPT/HCPCS: 77063; 77067; 94060; 94726; 94729

== ENCOUNTER 2023-01-20 08:24 | Outpatient (CLI) | payer MEDICARE, OTHER, SELFPAY ==
--- NOTE | ~2023-01-20 | DEXA_ITS ---
Bone Density Report Name: NAVID ZIMMERMAN Age: 77 Sex: Female Ethnicity: White Date of : 1945 Indication: postmenopausal; screening for osteoporosis; rheumatoid arthritis; Referring Provider: Griselda Taylor Study: Bone densitometry was performed. Exam Date: January 20, 2023 Accession number: [id number] Bone Density: Region BMD T-score Z-score Classification AP Spine(L1-L4) 0.630 -3.8 -1.4 Osteoporosis Femoral Neck (Left) 0.521 -3.0 -0.9 Osteoporosis Total Hip (Left) 0.564 -3.1 -1.3 Osteoporosis Femoral Neck (Right) 0.508 -3.1 -1.0 Osteoporosis Total Hip (Right) 0.603 -2.8 -1.0 Osteoporosis Femoral Neck Mean 0.514 -3.0 -0.9 Osteoporosis Total Hip Mean 0.583 -2.9 -1.1 Osteoporosis World Health Organization criteria for BMD impression classify patients as: Normal (T-score at or above -1.0), Osteopenia (T-score between -1.0 and -2.5), or Osteoporosis (T-score at or below -2.5). 10-year Fracture Risk: FRAX not reported because: Some T-score for Spine Total or Hip Total or Femoral Neck at or below -2.5 Clinical Information Provided by Patient: Has rheumatoid arthritis Menopause Age: 52 No regular weight bearing exercise Does not regularly consume dairy products Drinks caffeinated beverages Onset of menses at age 15 Number of children 1 Impression: The patient has osteoporosis, based on the Total Spine T-score. Discussion: INCREASED RISK OF FRACTURE. BONE DENSITY IS UNDESIRABLY LOW AT ONE OR MORE SKELETAL SITES, CONSISTENT WITH POSTMENOPAUSAL OSTEOPOROSIS. This patient's lowest T-score meets the World Health Organization's (WHO) criteria for osteoporosis at one or more sites (T-score -2.5 or below). In untreated patients, the risk of osteoporotic fracture increases approximately two-fold for each 1.0 SD decrease in T-score. Low bone density is not the only risk factor for fracture; also consider factors such as patient's age, frailty or poor health, risk of falling, risk of injury, previous osteoporotic fracture, family history of osteoporosis, cigarette smoking, low body weight, etc. Not everyone with low bone mineral density has osteoporosis; osteomalacia and other metabolic bone disorders should also be considered. Patients who have osteoporosis should be evaluated for specific diseases and conditions (secondary causes) that may cause or contribute to bone loss. The [place] [employer] Endocrinologists (AACE) and National Osteoporosis Foundation (NOF) recommend pharmacologic intervention for all postmenopausal women whose T-score is in this range. The patient should follow a healthful lifestyle (good nutrition with adequate calcium and vitamin D, and appropriate weight-bearing exercise). Follow-Up: Consider a repeat BMD and Vertebral Fracture Assessment (VFA) exam in 2 years or sooner if medically necessary, to reassess this patient's stat
== END 2023-01-20 08:25 | disposition home or self-care (01) ==
LOC: CHSIMG 08:24
PROVIDERS: PCP Family Medicine; Visit Provider Family Medicine
DX: Z78.0 Asymptomatic menopausal state (principal); M81.0 Age-related osteoporosis without current pathological fracture
CPT/HCPCS: 77080

== ENCOUNTER 2023-03-14 11:28 | Outpatient (CLI) | payer MEDICARE, OTHER, SELFPAY ==
--- NOTE | ~2023-03-14 | XR_ITS ---
EXAMINATION:XR_[id number]_CR DATE: 03/14/2023 11:53 INDICATION: Neck pain TECHNIQUE: AP, lateral, and odontoid views of the cervical spine are provided. COMPARISON: None FINDINGS: There are 2 mm of anterolisthesis of C4 on C5. The odontoid process is intact. No fracture is identified. There is anterior fusion at C5-6. There is severe loss of intervertebral disc space he ight at C4-5 and C6-7. There is mild loss of vertebral body height at C6-C7. There is multilevel fernando re facet and uncovertebral joint osteoarthritis. Prevertebral soft tissues are normal. IMPRESSION: 1. Severe cervical spondylosis without acute findings. Reviewed, dictated and finalized at location L. R BENDER
== END 2023-03-14 11:29 | disposition home or self-care (01) ==
LOC: CHSIMG 11:30
PROVIDERS: PCP Nurse Practitioner Family; Visit Provider Nurse Practitioner Family
DX: M54.2 Cervicalgia (principal); M43.02 Spondylolysis, cervical region
CPT/HCPCS: 72040

== ENCOUNTER 2023-06-20 10:54 | Outpatient (CLI) | payer MEDICARE, SELFPAY ==
[2023-06-20 11:24] LABS: Basophils Absolute Auto 0.01 K/mm3 (0.00-0.10); Basophils Percent Auto 0.1 % (0.0-1.0); Hematocrit 43.6 % (35.0-42.0); Hemoglobin 14.2 g/dL (11.7-13.8); Immature Granulocyte Absolute 0.14 K/mm3 (0.00-0.00); Immature Granulocyte Percent A 1.1 % (0.0-0.0); Lymphocytes Absolute Auto 0.61 K/mm3 (1.10-4.50); Lymphocytes Percent Auto 4.9 % (18.0-42.0); Mean Corpuscular HGB Conc 32.6 g/dL (32-36); Mean Corpuscular Volume 98.2 fL (78.0-102.0); Monocytes Absolute Auto 0.63 K/mm3 (0.10-0.90); Monocytes Percent Auto 5.1 % (2.0-11.0); Neutrophils Absolute Auto 11.03 K/mm3 (1.70-7.20); Neutrophils Percent Auto 88.8 % (50.0-70.0); Platelet Count Result 236 K/mm3 (150-420); Red Blood Count 4.44 M/mm3 (4.20-5.40); White Blood Count 12.4 K/mm3 (4.8-10.8)
[2023-06-20 12:21] LABS: Alanine Aminotransferase 27 U/L (14-59); Albumin Level 3.4 g/dL (3.4-5.0); Alkaline Phosphatase 90 U/L (46-116); Anion Gap 10 mmol/L (4-12); Aspartate Amino Transferase 16 U/L (15-37); Bilirubin,Total 0.6 mg/dL (0.00-1.00); Blood Urea Nitrogen 13 mg/dL (7-18); CRP < 0.5 mg/dL (0.0-0.9); Calcium 8.1 mg/dL (8.5-10.1); Carbon Dioxide 29 mmol/L (21-32); Chloride 101 mmol/L (98-108); Estimated Glomerular Filt Rate > 60; Glucose 98 mg/dL (70-99); Osmolality Calculated 290 mOsm/kg (285-295); Potassium 3.9 mmol/L (3.5-5.1); Sodium 140 mmol/L (136-145); Total Protein 6.5 g/dL (6.4-8.2)
[2023-06-20 12:37] LABS: Erythrocyte Sedimentation Rate 13 mm/hr (0-20)
== END 2023-06-20 10:55 | disposition home or self-care (01) ==
LOC: CHSLAB 10:57
PROVIDERS: PCP Nurse Practitioner Family
DX: M06.9 Rheumatoid arthritis, unspecified (principal); Z79.899 Other long term (current) drug therapy
CPT/HCPCS: 36415; 80053; 85025; 85652; 86140

== ENCOUNTER 2023-06-21 12:29 | Outpatient (CLI) | payer MEDICARE, OTHER, SELFPAY ==
--- NOTE | ~2023-06-21 | CT_ITS ---
EXAMINATION:CT chest high resolution [facility] DATE: 06/21/2023 12:54 INDICATION: Chronic cough. Chronic obstructive pulmonary disease. TECHNIQUE: Computed tomography (CT) of the chest was performed without intravenous contrast. Automate d exposure control and iterative reconstruction technique were employed. The dose-length product (DLP ) was 115.17 mGy-cm. COMPARISON: Chest CT 06/18/2020 FINDINGS: There is mild scarring at the lung apices. There is mild atelectasis bilaterally. Again see n are numerous scattered nodules in the lungs measuring up to 6 mm. There is a new 3 mm nodule left l ower lobe, likely benign. A calcified left lung nodule and calcified bilateral hilar lymph nodes are consistent with old granulomatous disease. No pleural effusion. Cardiomegaly is noted. No pericardial effusion. There is a small sliding hiatal hernia. Calcifications in the spleen are consistent with o ld granulomatous disease. There is thoracic kyphosis. There is severe mid thoracic spondylosis. IMPRESSION: 1. Small pulmonary nodules, likely benign. Reviewed, dictated and finalized at location E.
== END 2023-06-21 12:30 | disposition home or self-care (01) ==
LOC: CHSIMG 12:31
PROVIDERS: PCP Nurse Practitioner Family; Visit Provider Nurse Practitioner Family
DX: J44.9 Chronic obstructive pulmonary disease, unspecified (principal); R91.8 Other nonspecific abnormal finding of lung field; R05.3 Chronic cough; M06.9 Rheumatoid arthritis, unspecified
CPT/HCPCS: 71250

== ENCOUNTER 2023-06-26 14:18 | Emergency (ER) | payer MEDICARE, OTHER, SELFPAY ==
--- NOTE | ~2023-06-26 | XR_ITS ---
EXAMINATION: XR shoulder RT min 2V DATE: 06/26/2023 14:48 INDICATION: Right shoulder pain post fall TECHNIQUE: AP and transscapular Y views of the right shoulder were obtained. COMPARISON: 07/20/2020 FINDINGS: Approximate 5 mm lateral displacement ofa fracture of the greater tuberosity of the proximal right hu merus. No other fractures identified. There is some caudal subluxation of the humeral head with respe ct to the glenoid suggesting presence of a joint effusion, most likely posttraumatic hemarthrosis. Po stoperative change of prior distal right clavicle resection with chronic small bone fragment along th e osteotomy margin. Metallic button at the proximal most right humeral diaphysis likely for bicipital tenodesis. IMPRESSION: 1 part fracture involving the greater tuberosity of the proximal right humerus. Reviewed, dictated and finalized at location A.
--- NOTE | 2023-06-26 14:21 | ED.GENADULT ---
HPI - General Adult General Chief complaint: Extremity Injury, Upper Stated complaint: fall right upper arm pain Time Seen by Provider: 06/26/23 14:20 History of Present Illness HPI narrative: Nicolette is a 77F with a PMH of COPD, OA, SNEHAL, basal cell carcinoma, and RA that presented to the ED with pain in her right shoulder. She reportedly tripped in the yard and fell into the house. She has no other injuries. She did not hit her nead or neck and there was no LOC. It hurts very bad to move it. She can barely flex or abduct the right arm. Related Data Home Medications Medication Instructions Recorded Confirmed folic acid 1 mg tablet 1 mg PO DAILY 03/18/19 06/26/23 hydroxychloroquine 200 mg tablet 200 mg PO DAILY 03/18/19 06/26/23 multivitamin 1 tablet PO DAILY 03/18/19 06/26/23 tramadol 50 mg tablet 50 mg PO Q6H PRN Pain 03/18/19 06/26/23 methotrexate sodium 2.5 mg tablet 20 mg PO WEEKLY 03/06/20 06/26/23 albuterol sulfate 90 mcg/actuation 1 - 2 inh inhalation Q4H PRN 06/26/23 06/26/23 aerosol inhaler Shortness Of Breath budesonide 160 mcg-glycopyr 9 2 inh inhalation BID 06/26/23 06/26/23 mcg-formot 4.8 mcg/actuation HFA inhaler (Breztri Aerosphere) montelukast 10 mg tablet 10 mg PO DAILY 06/26/23 06/26/23 prednisone 20 mg tablet 20 mg PO DAILY PRN as needed 06/26/23 06/26/23 ropinirole 0.5 mg tablet 0.5 mg PO HS 06/26/23 06/26/23 trazodone 100 mg tablet 200 mg PO HS PRN Insomnia 06/26/23 06/26/23 Allergies Allergy/AdvReac Type Severity Reaction Status Date / Time No Known Allergies Allergy Verified 06/26/23 14:58 Review of Systems Review of Systems: All systems reviewed & are unremarkable except as noted in HPI and below PMFSH Past Medical History Medical History Arthritis of foot, left, degenerative Palindromic rheumatism Peripheral neuropathy Restless leg syndrome Rheumatoid arthritis Skin lesion Surgical History Surgical History History of appendectomy History of carpal tunnel release of both wrists (~1999) History of hysterectomy History of repair of left rotator cuff (~1997) History of repair of right rotator cuff (~2015) History of surgery (~2018) Biceps tendon repair Family History Family History Father Diabetes mellitus Kidney disease Mother Wegeners granulomatosis Sibling Breast cancer Leukemia Social History Social History Smoking packs per day: 0.5 Smoking cigarettes per day: 10.0 Years smoked: 30 Smoking pack-years: 15.00 Smoking status: Former smoker Tobacco type: cigarettes Smoking end date: 02/06/94 Additional smoking assessment comments: STATES 1PK EVERY 3 DAYS FOR 20YRS, QUIT 1994 Alcohol intake: current Drinks per week: 1 Substance use: never Substance use type: does not use Lack of Transportation: No Lack of Food: Never True Current Housing: I Have Housing Concerned About Future Housing: No Difficulty Paying Gas/Electric Bills: No Difficulty Paying for Meds: No Currently Unemployed: No Education: High School Diploma/GED Difficulty w/ Childcare or Family Care: No Living arrangements: alone Additional living arrangements comments: LIVES WITH SPOUSE CHARLES [phone] Occupation/Education: retired Gender identity (if verbalized by the patient): Female Spiritual care concerns: No Exam Const: General: cooperative, healthy appearing, comfortable, no acute distress, well developed, alert, awake and Physically active Orientation/consciousness: oriented to person, oriented to place and oriented to time HENMT: Head: normal to inspection, normocephalic and atraumatic Ears: hearing grossly normal bilaterally and external ears normal Face/Nose/Sinus: Normal external nose present Eyes:
[2023-06-26] MEDS: MORPHINE SULFATE (*CRX) 4 MG/ML INJ IM (14:36)
[2023-06-26 14:53] VITALS: BP 120/66; PULSE 80; RESP 20; TEMP 36.7; O2SAT 95
[2023-06-26 16:19] VITALS: BP 125/69; PULSE 68; RESP 20; TEMP 36.7; O2SAT 96
== END 2023-06-26 16:21 | disposition home or self-care (01) ==
PROVIDERS: Emergency Provider Family Medicine; PCP Family Medicine
DX: S42.251A Displaced fracture of greater tuberosity of right humerus, initial encounter for closed fracture (principal); W01.0XXA Fall on same level from slipping, tripping and stumbling without subsequent striking against object, initial encounter; M06.9 Rheumatoid arthritis, unspecified; Z87.891 Personal history of nicotine dependence
CPT/HCPCS: 73030; 96372; 99284; J2270; L3670

== ENCOUNTER 2023-07-25 09:20 | Outpatient (CLI) | payer MEDICARE, OTHER, SELFPAY ==
--- NOTE | ~2023-07-25 | US_ITS ---
EXAMINATION: US venous doppler UE RT DATE: 07/25/2023 10:31 INDICATION: Acute embolism and thrombosis of the deep veins present with pain, bruising and warmth at the right upper arm TECHNIQUE: Grayscale images without and with compression and Doppler images of the right upper extrem ity veins were obtained. COMPARISON: None. FINDINGS: The right internal jugular vein, subclavian vein, axillary vein, brachial vein, basilic vein, cephali c vein, radial vein, and ulnar vein are patent. IMPRESSION: 1. Patent right upper extremity veins. No evidence of venous thrombosis. Reviewed, dictated and finalized at location A.
== END 2023-07-25 09:21 | disposition home or self-care (01) ==
PROVIDERS: PCP Family Medicine; Visit Provider Family Medicine
DX: S42.251A Displaced fracture of greater tuberosity of right humerus, initial encounter for closed fracture (principal); J30.9 Allergic rhinitis, unspecified; G47.00 Insomnia, unspecified; I82.621 Acute embolism and thrombosis of deep veins of right upper extremity
CPT/HCPCS: 93971

== ENCOUNTER 2023-08-18 10:47 | Outpatient (CLI) | payer MEDICARE, OTHER, SELFPAY ==
--- NOTE | ~2023-08-18 | XR_ITS ---
EXAMINATION: XR humerus RT DATE: 08/18/2023 11:00 INDICATION: Displaced fracture of greater tuberosity of right humerus. TECHNIQUE: 2 views of right humerus were obtained. COMPARISON: Right shoulder radiographs 06/29/2023, 06/26/2023 FINDINGS: There is a nondisplaced comminuted fracture of proximal right humerus involving the surgica l neck and greater tuberosity with callus formation. There are changes of distal clavicle resection. The glenohumeral joint is normal. No elbow joint effusion. IMPRESSION: 1. Healing one-part fracture of proximal right humerus. Reviewed, dictated and finalized at location E.
== END 2023-08-18 10:48 | disposition home or self-care (01) ==
PROVIDERS: PCP Family Medicine; Visit Provider Family Medicine
DX: S42.251D Displaced fracture of greater tuberosity of right humerus, subsequent encounter for fracture with routine healing (principal)
CPT/HCPCS: 73060

== ENCOUNTER 2023-08-29 08:53 | Outpatient (CLI) | payer MEDICARE, OTHER, SELFPAY ==
[2023-09-06 13:05] VITALS: BMI 24.1
--- NOTE | 2023-09-06 13:05 | WPDHOMESLEEP ---
Sleep Study - Home Unattended Date of Study: 08/29/23 Ordering Provider: Jose Martin Arrington APRN Interpreting Provider: Mariah Caro, DO Home Sleep Study Type: Watch PAT Height: 1.65 m Weight: 65.771 kg Body Mass Index: 24.1 Neck Circumference (inches): 13 [place]: 2 Reason for Sleep Study Re-evaluation of SNEHAL while using mandibular advancement device Sleep History The patient is a 77-year-old female that had a sleep study ordered the pulmonary group for re-evaluation of sleep apnea. The patient is currently using a mandibular advancement device for treatment and was recommended to repeat a sleep study to ensure that her settings or optimal. The patient denies having trouble sleeping when she has a cold. She rarely wakes up gasping for air throughout the night. She rarely has breathing problems at observed by herself or others. She denies sweating excessively at night. She denies having heart palpitations or irregular heartbeats during night. She rarely falls asleep during the day and never while driving. She denies sleep paralysis, cataplexy and hypnagogic / hypnopompic hallucinations. She denies having trouble at school or work due to sleepiness. She denies feeling afraid of going to sleep. She rarely has nightmares. She occasionally remembers her dreams. She frequently has thoughts racing through her mind. She rarely feels sad or depressed. She occasionally has anxiety. She rarely has muscular tension. She rarely notices parts of her body jerk. She occasionally kicks during the night. She frequently has crawling and aching feelings in her legs and frequently has leg pain during the night. She frequently grinds her teeth during sleep and occasionally awakens with morning jaw pain. She is rarely bothered by pain during the day and rarely awakened by pain during the night. She occasionally wakes up feeling stiff in the morning. She occasionally wakes up with sore or achy muscles. She rarely wakes up with pain in the neck, spine and other joints. She goes to bed between 10 to 10:30 p.m. on weekdays and between 10 30-11 p.m. on the weekends. It takes her 5-10 minutes to fall asleep. She wakes up 2-3 times throughout the night to urinate and is able fall back asleep within a few minutes. She wakes up at 8:00 a.m. on weekdays and between 830-9 a.m. on the weekends. She typically gets a minimum of 8 hours of sleep per night. She does not stay in bed longer than 5 minutes after waking up morning. She currently lives with her . She denies consuming any caffeinated beverages within 2 hours of bedtime. She denies engaging in physical exercise before bedtime. She will read watch television before falling asleep. She denies taking naps in afternoon or the evening. She denies consuming caffeinated beverages throughout the day. She is a former smoker. It and she denies alcohol and recreational drug use. [facility] Past Medical History Medical History Arthritis of foot, left, degenerative Palindromic rheumatism Peripheral neuropathy Restless leg syndrome Rheumatoid arthritis Skin lesion Surgical History Surgical History History of appendectomy History of carpal tunnel release of both wrists (~1999) History of hysterectomy History of repair of left rotator cuff (~1997) History of repair of right rotator cuff (~2015) History of surgery (~2018) Biceps tendon repair Family History Family History Father Diabetes mellitus Kidney disease Mother Wegeners granulomatosis Sibling Breast cancer Leukemia Social History Social History Smoking packs per day: 0.5 Smoking cigarettes per day: 10.0 Years smoked: 30 Smoking pack-years: 15.00 Smoking status: Form
== END 2023-08-30 10:24 | disposition home or self-care (01) ==
LOC: ANHCSM 08:54
PROVIDERS: PCP Family Medicine; Visit Provider Nurse Practitioner Family
DX: G47.33 Obstructive sleep apnea (adult) (pediatric) (principal); G25.81 Restless legs syndrome
CPT/HCPCS: 95800

== ENCOUNTER 2023-09-13 13:19 | Outpatient (CLI) | payer MEDICARE, OTHER, SELFPAY ==
--- NOTE | ~2023-09-13 | XR_ITS ---
Right Shoulder Technique: AP and scapular Y views were obtained. Clinical History: Pain Findings: No fracture or dislocation is seen. Osseous alignment is anatomic. The glenohumeral and acr omioclavicular joint spaces are preserved. Soft tissues are unremarkable. Impression: Unremarkable right shoulder radiographs. Reviewed, dictated and finalized at [facility]. Impression: Unremarkable right shoulder radiographs.
[2023-09-13 14:25] LABS: Ferritin 62 ng/mL (8-252)
== END 2023-09-13 13:20 | disposition home or self-care (01) ==
LOC: CHSLAB 13:20
PROVIDERS: PCP Family Medicine; Visit Provider Nurse Practitioner Family
DX: S42.251A Displaced fracture of greater tuberosity of right humerus, initial encounter for closed fracture (principal); G25.81 Restless legs syndrome; C44.91 Basal cell carcinoma of skin, unspecified
CPT/HCPCS: 36415; 73030; 82728

== ENCOUNTER 2023-12-27 11:27 | Outpatient (CLI) | payer MEDICARE, OTHER, SELFPAY ==
[2023-12-27 11:41] LABS: Basophils Absolute Auto 0.02 K/mm3 (0.00-0.10); Basophils Percent Auto 0.4 % (0.0-1.0); Eosinophils Absolute Auto 0.11 K/mm3 (0.02-0.50); Eosinophils Percent Auto 2.3 % (1.0-6.0); Hematocrit 37.2 % (35.0-42.0); Hemoglobin 12.4 g/dL (11.7-13.8); Immature Granulocyte Absolute 0.02 K/mm3 (0.00-0.00); Immature Granulocyte Percent A 0.4 % (0.0-0.0); Lymphocytes Absolute Auto 1.17 K/mm3 (1.10-4.50); Lymphocytes Percent Auto 24.5 % (18.0-42.0); Mean Corpuscular HGB Conc 33.3 g/dL (32-36); Mean Corpuscular Hemoglobin 32.2 pg (27.0-31.0); Mean Corpuscular Volume 96.6 fL (78.0-102.0); Monocytes Percent Auto 8.4 % (2.0-11.0); Neutrophils Absolute Auto 3.05 K/mm3 (1.70-7.20); Platelet Count Result 174 K/mm3 (150-420); Red Blood Count 3.85 M/mm3 (4.20-5.40); Red Cell Distribution Width 12.7 % (11.6-14.4); White Blood Count 4.8 K/mm3 (4.8-10.8)
[2023-12-27 13:04] LABS: Alanine Aminotransferase 30 U/L (14-59); Albumin Level 3.5 g/dL (3.4-5.0); Alkaline Phosphatase 87 U/L (46-116); Anion Gap 8 mmol/L (4-12); Aspartate Amino Transferase 19 U/L (15-37); Bilirubin,Total 0.6 mg/dL (0.00-1.00); Blood Urea Nitrogen 12 mg/dL (7-18); Calcium 8.6 mg/dL (8.5-10.1); Carbon Dioxide 29 mmol/L (21-32); Chloride 106 mmol/L (98-108); Estimated Glomerular Filt Rate > 60; Ferritin 104 ng/mL (8-252); Glucose 88 mg/dL (70-99); Iron 73 ug/dL (50-170); Osmolality Calculated 294 mOsm/kg (285-295); Percent Iron Saturation 27 % (12-57); Potassium 3.9 mmol/L (3.5-5.1); Sodium 143 mmol/L (136-145); Total Protein 6.1 g/dL (6.4-8.2)
[2023-12-29 01:33] LABS: Red Blood Cell Folate 605 ng/mL RBC (>280)
== END 2023-12-27 11:28 | disposition home or self-care (01) ==
LOC: CHSLAB 11:28
PROVIDERS: PCP Nurse Practitioner Family; Visit Provider Nurse Practitioner Family
DX: I10 Essential (primary) hypertension (principal); D64.9 Anemia, unspecified
CPT/HCPCS: 36415; 80053; 82728; 82747; 83540; 83550; 85025

== ENCOUNTER 2024-02-17 07:37 | Outpatient (CLI) | payer MEDICARE, OTHER, SELFPAY ==
--- NOTE | ~2024-02-17 | MR_ITS ---
MRI of the cervical spine Clinical History: Pain Technique: Axial T2-weighted and gradient images, and sagittal T1-weighted, T2-weighted, and STIR avinash ges were acquired. Findings: No acute fracture or subluxation evident. There is fusion across the C5-C6 disc space. No s uspicious bone marrow signal abnormality seen. At C2-C3, there is no disc bulge or herniation. There is minimal facet arthropathy. No central canal stenosis, cord compression, or neural foraminal narrowing. At C3-C4, there is minimal disc bulge with mild facet arthropathy. Possible minimal left neural renetta inal narrowing. Right neural foramen preserved. No central canal stenosis or cord compression. At C4-C5, there is moderate degenerative distended. There is disc ossify complex with mild canal sten osis but no benji cord compression. There is bilateral neural foraminal narrowing, left worse than ri ght. At C5-C6, there is no disc bulge or herniation. No spinal canal stenosis, cord compression, or neural foraminal narrowing evident. At C6-C7, there is minimal disc osteophyte convex. No canal stenosis or cord compression. Possible mi nimal right neural foraminal narrowing. Left neural foramen preserved. No abnormal signal seen in the spinal cord. Paravertebral soft tissues are unremarkable. Impression: Moderate to advanced degenerative spondylosis at C4-C5. Fusion across the C5-C6 disc space. Minimal degenerative change in the remainder of the cervical spine. Reviewed, dictated and finalized at [facility]. SERVICE AGENT Impression: Moderate to advanced degenerative spondylosis at C4-C5. Fusion across the C5-C6 disc space. Minimal degenerative change in the remainder of the cervical spine.
== END 2024-02-17 07:38 | disposition home or self-care (01) ==
PROVIDERS: PCP Family Medicine; Visit Provider Family Medicine
DX: G89.29 Other chronic pain (principal); M54.2 Cervicalgia; M43.02 Spondylolysis, cervical region; Z98.1 Arthrodesis status
CPT/HCPCS: 72141

== ENCOUNTER 2024-02-19 13:39 | Outpatient (CLI) | payer MEDICARE, OTHER, SELFPAY ==
--- NOTE | ~2024-02-19 | MM_ITS ---
EXAMINATION: MM screening stevie BI w maude HISTORY: Screening mammogram, family history of breast cancer in her sister. TECHNIQUE: Craniocaudal and mediolateral oblique 3-D tomosynthesis images were obtained and synthetic 2-D images were generated. CAD analysis was submitted and interpreted. COMPARISON: 12/06/2022 BREAST PARENCHYMAL COMPOSITION:Not Dense. There are scattered areas of fibroglandular density. FINDINGS: No suspicious mass, calcification, or architectural distortion are identified in either tanner ast to suggest malignancy. There has been no suspicious interval change. IMPRESSION: No mammographic evidence of malignancy. Recommend routine screening mammography in one year. BI-RADS Category 1: Negative Reviewed, dictated and finalized at location . METER CHECKER
== END 2024-02-19 13:40 | disposition home or self-care (01) ==
LOC: CHSIMG 13:43
PROVIDERS: PCP Family Medicine; Visit Provider Family Medicine
DX: Z12.31 Encounter for screening mammogram for malignant neoplasm of breast (principal)
CPT/HCPCS: 77063; 77067

== ENCOUNTER 2024-06-11 13:51 | Outpatient (CLI) | payer MEDICARE, OTHER, SELFPAY ==
--- NOTE | ~2024-06-11 | CT_ITS ---
CTA chest PE protocol Ordering provider: Archie Caraballo APRN History: 78 years Female with . RT breast chest pain, Extreme SOB X 4 days . Comparison: June 21, 2023 Technique: CT angiogram chest was performed following timed intravenous injection of contrast. Thin s lice axial images and reformatted coronal images were obtained. Three dimensional reformatted images of the chest were also obtained using a Mgv workstation. . Automated exposure control and iterati ve reconstruction technique were employed. The dose-length product was 127.76 mGy-cm. 100 mL Omnipaqu e 350 was given IV. Findings: PULMONARY ARTERIES: No pulmonary embolus. VISUALIZED THORACIC INLET: Normal. MEDIASTINUM: Aorta/coronary arteries: Mild atheromatous disease. Heart/other: The heart is slightly enlarged. Lymph nodes: No mediastinal or hilar adenopathy. LUNGS: 5 mm and 8 millimeters nodules seen in the left lower lobe. 3 mm nodule is seen in the left upper lob e laterally. Pleural base nodule is seen in the left upper lobe measuring 6 mm. Pleural-based Nodule also seen in the right apical area measuring 3 mm. No pulmonary masses. Patchy areas of groundglass a ppearance seen in the upper and lower lobes more on the left side which may indicate atelectasis vers us pneumonia. Minimal right Pleural effusion.. No pneumothorax. Subsegmental atelectasis in the right lung base posteriorly. VISUALIZED UPPER ABDOMEN: Sliding hiatus hernia.Otherwise, the visualized upper abdomen is normal. MUSCULOSKELETAL: Soft tissues: The superficial soft tissues are normal. Bones: Age appropriate degenerative changes of the spine. IMPRESSION: 1. No pulmonary embolism. 2. Patchy areas of groundglass appearance in the upper and lower lobes which may indicate atelectasi s versus pneumonia. 3. Right pleural effusion Reviewed, dictated and finalized at location A. IMPRESSION: 1. No pulmonary embolism. 2. Patchy areas of groundglass appearance in the upper and lower lobes which m ay indicate atelectasis versus pneumonia. 3. Right pleural effusion
--- OUTSIDE RECORDS SUMMARY | 2024-06-11 13:59 | XMS_ITS | Clinical Summary ---
Author Organization [facility] Address [address] [place] [address] Care Team Providers Care Kiln Car Unloader Name Role Phone Silviano Stone DO Primary Care Provider [phone] Allergies No known active allergies Medications hydroxychloroqu ine (PLAQUENIL) 200 MG tablet Take by mouth daily. Active methotrexate (TREXALL) 2.5 MG tablet Take 1 tablet (2.5 mg total) by mouth once a week. Active doxycycline hyclate (VIBRA-TABS) 100 MG tablet Take 1 tablet (100 mg total) by mouth 2 (two) times daily. Active rOPINIRole (REQUIP) 0.5 MG tablet Take 1 tablet (0.5 mg total) by mouth 3 (three) times daily. Active traZODone (DESYREL) 100 MG tablet Take 1 tablet (100 mg total) by mouth nightly at bedtime. Active predniSONE (DELTASONE) 20 MG tablet Take 1 tablet (20 mg total) by mouth as needed. Only when RA flareup Active albuterol sulfate HFA 108 (90 Base) MCG/ACT inhaler INHALE 1 - 2 PUFFS BY MOUTH EVERY 4 - 6 HOURS NEEDED FOR SHORTNESS OF BREATH OR WHEEZING Active ADVAIR HFA 115-21 MCG/ACT inhaler 2 PUFF INHALED TWICE A DAY ADMINISTER WITH SPACER, RINSE AND SPIT Active Active Problems No known active problems Family History Medical History Relation Comments Breast Cancer Sister Relation Status Comments Sister Social History Tobacco Use Types Packs/Day Years Used Date Smoking Tobacco: Former Cigarettes Q uit: 10/19/1993 Smokeless Tobacco: Never Tobacco Cessation:Counseling Given: No Alcohol Use Standard Drinks/Week Comments Not Asked 0 (1 standard drink = 0.6 oz pur e alcohol) Comments No Sex and Gender Information Value Date Recorded Sex Assigned at Not on file 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 Gender Identity Not on file Sexual Orientation Not on file Last Filed Vital Signs Vital Sign Reading Time Taken Comments Blood Pressure 107/53 10/25/2023 11:54 AM CDT Pulse 60 10/25/2023 11:54 AM CDT Temperature 36 C (96.8 F) 10/25/2023 11:54 AM CDT Respiratory Rate 16 10/25/2023 11:54 AM CDT Oxygen Saturation 98% 10/25/2023 11:54 AM CDT Inhaled Oxygen Concentration - - Weight 66.7 kg (147 lb) 10/20/2023 9:31 AM CDT Height 165.1 cm (5' 5 ) 10/20/2023 9:31 AM CDT Body Mass Index 24.46 10/20/2023 9:31 AM CDT Plan of Treatment Health Maintenance Due Date Last Done Comments Hepatitis C 09/23/1965 DTaP, Tdap and Td Vaccines ( 1 - Tdap) 09/23/1966 Pneumococcal Vaccine: 50+ Years (1 of 1 - PCV) 09/23/1997 Zoster Vaccines (1 of 2) 09/23/1997 Annual Medicare Wellness Visit 09/23/2012 Dexa Scan (General) 09/23/2012 RSV Immunization or 60+ Years (1 - 1-dose 75+ series) 09/23/2022 COVID-19 Vaccine ( - 2023-2 5 season) 2023 10/22/2020, 04/01/2020, 03/11/2020 Meningococcal B Vaccine Aged Out No l onger eligible based on patient's age to complete this topic Meningococcal Vaccine Aged Out No dane daniel eligible based on patient's age to complete this topic RSV Immunizations Under 20 Months Aged Out No longer eligible b ased on patient's age to complete this topic Medical Devices Implanted Type Area Managing Director Atlas Device Identifier Shelf Expiration Date Model / Serial / Lot Iol Tecnis Simplicity Dcb00 - [id number] Implanted:Qty: 1 on 08/23/2023 by Hortencia Strickland MD at [facility] Lens Right: Eye [employer] [id number] 02/27/2025 DCB00 / [id number] / Tecnis Simplicity Delivery System Implanted:Qty: 1 on 10/25/2023 by Hortencia Strickland MD at [facility] Left: Eye [employer] [id number] 07/13/2025 [id number] / [id number] / [id number] Insurance MEDICARE [facility] Care Teams Kiln Car Unloader Relationship Specialty Start Date End Date Silviano Stone DO [address] [place] [address] PCP - General FAMILY PRACTICE 11/06/19
--- OUTSIDE RECORDS SUMMARY | 2024-06-11 13:59 | XMS_ITS | Encounter Summary ---
Author Organization [facility] Address [address] [place] [address] Care Team Providers Care Accounts Receivable Executive Name Role Phone Iraj Castillo MD Primary Care Provider [phone] Silviano Stone DO Primary Care Provider [phone] Encounter Details Date Type Department Care Team (Late st Contact Info) Description 07/14/2018 Abstract SFL CONVERSION [address] [place] [address] , Generic Conversion, Social History Tobacco Use Types Packs/Day Years Used Date Smoking Tobacco: Never Assessed Comments Unknown Sex and Gender Information Value Date Recorded Sex Assigned at Not on file Legal Sex Female 11:10 PM GERIATRIC PERSONAL CARE AIDE Gender Identity Not on file Sexual Orientation Not on file documented as of this encounter Plan of Treatment Not on file documented as of this encounter Visit Diagnoses Not on filedocumented in this encounter Care Teams Accounts Receivable Executive Relationship Specialty Start Date End Date Iraj Castillo MD [address] [place] [address] PCP - General FAMILY PRACTICE 08/24/18 11/05/19 Silviano Stone DO [address] [place] [address] PCP - General FAMILY PRACTICE 11/06/19 documented as of this encounter
[2024-06-11 14:06] LABS: Basophils Absolute Auto 0.04 K/mm3 (0.00-0.10); Basophils Percent Auto 0.7 % (0.0-1.0); Eosinophils Absolute Auto 0.08 K/mm3 (0.02-0.50); Eosinophils Percent Auto 1.4 % (1.0-6.0); Hematocrit 38.2 % (35.0-42.0); Hemoglobin 12.4 g/dL (11.7-13.8); Immature Granulocyte Absolute 0.02 K/mm3 (0.00-0.00); Immature Granulocyte Percent A 0.4 % (0.0-0.0); Lymphocytes Percent Auto 19.8 % (18.0-42.0); Mean Corpuscular HGB Conc 32.5 g/dL (32-36); Mean Corpuscular Hemoglobin 32.2 pg (27.0-31.0); Mean Corpuscular Volume 99.2 fL (78.0-102.0); Mean Platelet Volume 8.8 fl (9.2-11.8); Monocytes Absolute Auto 0.37 K/mm3 (0.10-0.90); Monocytes Percent Auto 6.7 % (2.0-11.0); Neutrophils Absolute Auto 3.94 K/mm3 (1.70-7.20); Platelet Count Result 172 K/mm3 (150-420); Red Blood Count 3.85 M/mm3 (4.20-5.40); Red Cell Distribution Width 12.9 % (11.6-14.4); White Blood Count 5.6 K/mm3 (4.8-10.8)
--- NOTE | 2024-06-11 14:07 | ECG_ITS ---
Test Date: 2024-06-11 14:21:25 Measurements Intervals [place] Rate: 61 P: 64 AL: 177 QRS: 63 QRSD: 98 T: 56 QT: 426 QTc: 430 Interpretive Statements SINUS RHYTHM POSSIBLE RIGHT VENTRICULAR CONDUCTION DELAY [RSR (QR) IN V1/V2] No previous ECG available for comparison Electronically Signed On 06-11-2024 14:37:54 CDT by Miquel Ruiz M.D.
[2024-06-11 14:23] LABS: Alanine Aminotransferase 25 U/L (14-59); Albumin Level 3.8 g/dL (3.4-5.0); Alkaline Phosphatase 75 U/L (46-116); Anion Gap 5 mmol/L (4-12); Aspartate Amino Transferase 20 U/L (15-37); Bilirubin,Total 0.6 mg/dL (0.00-1.00); Blood Urea Nitrogen 14 mg/dL (7-18); Calcium 8.8 mg/dL (8.5-10.1); Carbon Dioxide 32 mmol/L (21-32); Chloride 100 mmol/L (98-108); Estimated Glomerular Filt Rate > 60; Glucose 94 mg/dL (70-99); Osmolality Calculated 284 mOsm/kg (285-295); Potassium 4.4 mmol/L (3.5-5.1); Sodium 137 mmol/L (136-145); Total Protein 6.6 g/dL (6.4-8.2); Troponin I 16.5 ng/L (0.00-60.4)
[2024-06-11 15:04] LABS: HCO3 VBG 26.6 mEq/l (24.0-30.0); PCO2 VBG 45.7 mmHg (42.0-48.0); PO2 VBG 32.6 mmHg (35.0-45.0); pH VBG 7.38 (7.33-7.43)
[2024-06-11 15:09] LABS: Device ROOM AIR
== END 2024-06-11 13:52 | disposition home or self-care (01) ==
LOC: CHSIMG 13:55
PROVIDERS: PCP Family Medicine; Visit Provider Nurse Practitioner Family
DX: R07.81 Pleurodynia (principal); J44.9 Chronic obstructive pulmonary disease, unspecified; R06.02 Shortness of breath; R25.2 Cramp and spasm; R91.8 Other nonspecific abnormal finding of lung field; J90 Pleural effusion, not elsewhere classified
CPT/HCPCS: 36415; 71275; 80053; 82803; 84484; 85025; 93005; Q9967

== ENCOUNTER 2024-11-06 09:41 | Outpatient (CLI) | payer MEDICARE, OTHER, SELFPAY ==
--- NOTE | ~2024-11-06 | XR_ITS ---
EXAMINATION: XR chest 2V, 11/06/2024 9:50 CDT HISTORY: R05.9 - Cough, unspecified COMPARISON: No comparisons available. Technique: 2 views obtained. Findings: The lungs are clear, no effusion. No pneumothorax. Heart is normal size. Mediastinal and hilar contours are within normal limits. Bony thorax no acute abnormality. Impression: No acute cardiopulmonary abnormality. Reviewed, dictated and finalized at location P. Impression: No acute cardiopulmonary abnormality.
--- OUTSIDE RECORDS SUMMARY | 2024-11-06 10:16 | XMS_ITS | Clinical Summary ---
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 Gender Identity Not on file Sexual Orientation [...] 9:31 AM CDT Height 165.1 cm (5' 5) 10/20/2023 9:31 AM CDT Body Mass Index [...] - 1-dose 75+ series) 09/23/2022 COVID-19 Vaccine (4 - 2024-2 6 season) 2024 10/22/2020, 04/01/2020, 03/11/2020 Meningococcal B Vaccine Aged Out No l onger eligible based on patient's age to complete this topic Meningococcal Vaccine Aged Out No dane daniel eligible based on patient's age to complete this topic RSV Immunizations Under 20 Months Aged Out No longer eligible b ased on patient's age to complete this topic Medical Devices Implanted Type Area Quality Control Inspector Heading Device Identifier Shelf Expiration Date Model / Serial / Lot Iol Tecnis Simplicity Dcb00 - [id number] Implanted:Qty: 1 on 08/23/2023 by Hortencia Strickland MD at [facility] Lens Right: Eye [employer] [id number] 02/27/2025 DCB00 / [id number] / Tecnis Simplicity Delivery System Implanted:Qty: 1 on 10/25/2023 by Hortencia Strickland MD at [facility] Left: Eye [employer] [id number] 07/13/2025 [id number] / [id number] / [id number] Insurance MEDICARE [facility] Care Teams Cardiac Tech Relationship Specialty Start Date End Date Silviano Stone DO [address] [place] [address] PCP - General FAMILY PRACTICE 11/06/19
--- OUTSIDE RECORDS SUMMARY | 2024-11-06 10:16 | XMS_ITS | Encounter Summary ---
Author Organization [facility] Address [address] [place] [address] Care Team Providers Care Entertainment Agent Name Role Phone Iraj Castillo MD Primary Care Provider [phone] Silviano Stone DO Primary Care Provider [phone] Encounter Details Date Type Department Care Team (Late st Contact Info) Description 07/14/2018 Abstract SFL CONVERSION [address] [place] [address] , Generic Conversion, Social History Tobacco Use Types Packs/Day Years Used Date Smoking Tobacco: Never Assessed Comments Unknown Sex and Gender Information Value Date Recorded Sex Assigned at Not on file Legal Sex Female 11:10 PM LOAN REVIEW OFFICER Gender Identity Not on file Sexual Orientation Not on file documented as of this encounter Plan of Treatment Not on file documented as of this encounter Visit Diagnoses Not on filedocumented in this encounter Care Teams Entertainment Agent Relationship Specialty Start Date End Date Iraj Castillo MD [address] [place] [address] PCP - General FAMILY PRACTICE 08/24/18 11/05/19 Silviano Stone DO [address] [place] [address] PCP - General FAMILY PRACTICE 11/06/19 documented as of this encounter
== END 2024-11-06 09:42 | disposition home or self-care (01) ==
LOC: CHSIMG 09:43
PROVIDERS: PCP Family Medicine; Visit Provider Family Medicine
DX: R05.9 Cough, unspecified (principal)
CPT/HCPCS: 71046